=== PATIENT | male | born 1940 | race Hispanic/Latino ===

== ENCOUNTER 2017-08-09 06:59 | Inpatient (IN) | payer MEDICARE, OTHER ==
[2017-08-09] MEDS ORDERED: ASPIRIN PO ONE (07:14)
[2017-08-09 07:37] LABS: Basophils % (Auto) 0.3 % (0.0-1.8); Eosinophils # (Auto) 0.1 K/mm3 (0.0-0.4); Eosinophils % (Auto) 1.8 % (0.0-4.3); Hematocrit 49.2 % (35.5-45.6); Hemoglobin 16.9 gm/dl (11.8-15.2); Lymphocytes # (Auto) 1.7 K/mm3 (1.2-5.4); Mean Corpuscular HGB Conc 34 % (32-34); Mean Corpuscular Hemoglobin 31 pg (28-32); Mean Corpuscular Volume 91 fl (84-94); Monocytes % (Auto) 13.4 % (0.0-7.3); Platelet Count 140 K/mm3 (140-440); Red Blood Count 5.42 M/mm3 (3.65-5.03); Red Cell Distribution Width 13.4 % (13.2-15.2)
[2017-08-09 07:53] LABS: BUN/Creatinine Ratio 18; Blood Urea Nitrogen 21 mg/dL (9-20); Calcium 9.3 mg/dL (8.4-10.2); Hemolysis Index 11
[2017-08-09] MEDS ORDERED: TYLENOL PO ONE (08:03)
--- NOTE | 2017-08-09 08:04 | Emergency Department Report ---
ED General Adult HPI - General Chief complaint: Chest Pain Stated complaint: CHEST PAIN Time Seen by Provider: 08/09/17 07:41 Source: patient, EMS (ems notes not available at time of chart dictation), RN notes reviewed, old records reviewed Mode of arrival: Wheelchair Limitations: No Limitations - History of Present Illness Initial comments: This is a 76-year-old gentleman who is previously known to this provider. Has a past medical history of heart disease, myocardial infarction, hypertension, high cholesterol. He has no history of atrial fibrillation that he is aware of. 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 Patient presents to the ER with sensation of heart racing and palpitations and chest pressure. It is now resolved. Patient denies DVT/pulmonary embolus risk factors. The symptoms did not have exacerbating or relieving factors. He denies cough, vomiting, shortness of breath, urinary symptoms. Patient had a nuclear stress test at this hospital in May which did not demonstrate any signs of new ischemia, and demonstrated prior myocardial infarction. Patient also had thyroid studies in May which were within normal limits. Patient initially presented to this hospital in A. fib with RVR. It spontaneously converted. Case was discussed with cardiology on-call, Dr. Mj Ibrahim and Sam Menard. They recommended admission to the hospital for observation, telemetry monitoring and further medical care at their discretion. The cardiology team will follow in consultation. Case was presented to the Hospital physician, Dr. Garcia, who accepted the patient to the medical service. -: Sudden Location: chest Severity scale (0 -10): 5 Consistency: now resolved Improves with: none Worsens with: none Associated Symptoms: chest pain, other (no hematemesis. No bright red blood per rectum.). denies: confusion, cough, diaphoresis, fever/chills, headaches, loss of appetite, malaise, nausea/vomiting, rash, seizure, shortness of breath, syncope, weakness - Related Data Home Medications Medication Instructions Recorded Confirmed Last Taken Cholecalciferol (Vitamin D3) 3,000 unit PO QDAY 10/28/14 05/23/17 05/23/17 [Vitamin D3] Omeprazole 20 mg PO QDAY 10/28/14 05/23/17 05/23/17 glipiZIDE [Glipizide ER] 2.5 mg PO QDAY 10/28/14 05/23/17 05/23/17 Carvedilol [Coreg] 6.25 mg PO BID 05/23/17 05/23/17 05/23/17 Chlorthalidone 50 mg PO DAILY 05/23/17 05/23/17 05/23/17 Lisinopril [Zestril TAB] 40 mg PO QDAY 05/23/17 05/23/17 05/23/17 Pravastatin [Pravachol] 20 mg PO QHS 05/23/17 05/23/17 05/23/17 hydrALAZINE [Apresoline TAB] 100 mg PO BID 05/23/17 05/23/17 05/23/17 Previous Rx's Medication Instructions Recorded Last Taken Type Meclizine [Antivert] 25 mg PO Q8H PRN #60 tablet 10/29/14 05/23/17 Rx Allergies Allergy/AdvReac Type Severity Reaction Status Date / Time No Known Allergies Allergy Verified 10/28/14 04:14 ED Review of Systems ROS: Stated complaint: CHEST PAIN Other details as noted in HPI Comment: All other systems reviewed and negative Cardiovascular: chest pain, palpitations ED Past Medical Hx - Past Medical History Previous Medical History?: Yes Hx Hypertension: Yes Hx Heart Attack/AMI: Yes (2000) Hx Congestive Heart Failure: No Hx Diabetes: Yes Hx Deep Vein Thrombosis: No Additional medical history: sleep apnea with CPAP - Surgical History Past Surgical History?: Yes Hx Coronary Stent: Yes (X1) Hx Open Heart Surgery: No Hx Pacemaker: No Hx Internal Defibrillator: No Hx Cholecystectomy: No Hx Appendectomy: No Hx Breast Surgery: No Additional Surgical History: tonsilectomy - Social History Smoking Status: Never Smoker Substance Use Type: None - Medications Home Medications: Home Medications Medication Instructions Recorded Confirmed Last Taken Type Cholecalciferol (Vitamin D3) 3,000 unit PO QDAY 10/28/14 05/23/17 05/23/17 History [Vitamin D3] Omeprazole 20 mg PO QDAY 10/28/14 05/23/17 05/23/17 History glipiZIDE [Glipizide ER] 2.5 mg PO QDAY 10/28/14 05/23/17 05/23/17 History Meclizine [Antivert] 25 mg PO Q8H PRN #60 tablet 10/29/14 05/23/17 05/23/17 Rx Carvedilol [Coreg] 6.25 mg PO BID 05/23/17 05/23/17 05/23/17 History Chlorthalidone 50 mg PO DAILY 05/23/17 05/23/17 05/23/17 History Lisinopril [Zestril TAB] 40 mg PO QDAY 05/23/17 05/23/17 05/23/17 History Pravastatin [Pravachol] 20 mg PO QHS 05/23/17 05/23/17 05/23/17 History hydrALAZINE [Apresoline TAB] 100 mg PO BID 05/23/17 05/23/17 05/23/17 History ED Physical Exam - General Limitations: Other (the patient is hard of hearing) General appearance: alert, in no apparent distress - Head Head exam: Present: atraumatic, normocephalic - Eye Eye exam: Present: normal appearance, EOMI - ENT ENT exam: Present: normal exam, normal orophraynx, mucous membranes moist - Neck Neck exam: Present: normal inspection, full ROM. Absent: tenderness, meningismus - Respiratory Respiratory exam: Present: normal lung sounds bilaterally. Absent: respiratory distress - Cardiovascular Cardiovascular Exam: Present: tachycardia, irregular rhythm, normal heart sounds. Absent: systolic murmur, diastolic murmur, rubs, gallop - GI/Abdominal GI/Abdominal exam: Present: soft, normal bowel sounds. Absent: distended, tenderness, guarding, rebound, rigid, pulsatile mass - Rectal Rectal exam: Present: deferred - Extremities Exam Extremities exam: Present: normal inspection, full ROM, normal capillary refill. Absent: pedal edema, joint swelling, calf tenderness - Back Exam Back exam: Present: normal inspection, full ROM. Absent: tenderness, CVA tenderness (R), muscle spasm, paraspinal tenderness, vertebral tenderness - Neurological Exam Neurological exam: Present: alert, oriented X3, CN II-XII intact, normal gait, other (Extraocular movements intact. Tongue midline. No facial droop. Facial sensation intact to light touch in the V1, V2, V3 distribution bilaterally. 5 and 5 strength in 4 extremities.. Sensation is intact to light touch in 4 extremities.). Absent: motor sensory deficit - Psychiatric Psychiatric exam: Present: normal affect, normal mood - Skin Skin exam: Present: warm, dry, intact, normal color. Absent: rash ED Course Vital Signs 08/09/17 08/09/17 08/09/17 07:00 07:02 07:04 Temperature Pulse Rate 120 H 136 H 108 H Respiratory 15 10 L 20 Rate Blood Pressure 143/91 143/91 O2 Sat by Pulse 97 97 97 Oximetry 08/09/17 08/09/17 08/09/17 07:06 07:08 07:10 Temperature 98.6 F Pulse Rate 118 H 118 H 129 H Respiratory 13 18 12 Rate Blood Pressure 143/91 143/91 143/91 O2 Sat by Pulse 97 97 98 Oximetry 08/09/17 08/09/17 08/09/17 07:12 07:15 07:16 Temperature Pulse Rate 119 H 120 H 109 H Respiratory 13 15 17 Rate Blood Pressure 127/97 O2 Sat by Pulse 98 93 96 Oximetry 08/09/17 08/09/17 08/09/17 07:19 07:21 07:23 Temperature Pulse Rate 121 H 124 H 133 H Respiratory 15 18 25 H Rate Blood Pressure 127/97 143/91 143/91 O2 Sat by Pulse 98 97 94 Oximetry 08/09/17 07:53 Temperature 97.8 F Pulse Rate Respiratory Rate Blood Pressure O2 Sat by Pulse Oximetry ED Medical Decision Making - Lab Data Result diagrams: 08/09/17 07:19 08/09/17 07:19 Vital Signs 08/09/17 08/09/17 08/09/17 07:00 07:02 07:04 Temperature Pulse Rate 120 H 136 H 108 H Respiratory 15 10 L 20 Rate Blood Pressure 143/91 143/91 O2 Sat by Pulse 97 97 97 Oximetry 08/09/17 08/09/17 08/09/17 07:06 07:08 07:10 Temperature 98.6 F Pulse Rate 118 H 118 H 129 H Respiratory 13 18 12 Rate Blood Pressure 143/91 143/91 143/91 O2 Sat by Pulse 97 97 98 Oximetry 08/09/17 08/09/17 08/09/17 07:12 07:15 07:16 Temperature Pulse Rate 119 H 120 H 109 H Respiratory 13 15 17 Rate Blood Pressure 127/97 O2 Sat by Pulse 98 93 96 Oximetry 08/09/17 08/09/17 08/09/17 07:19 07:21 07:23 Temperature Pulse Rate 121 H 124 H 133 H Respiratory 15 18 25 H Rate Blood Pressure 127/97 143/91 143/91 O2 Sat by Pulse 98 97 94 Oximetry 08/09/17 07:53 Temperature 97.8 F Pulse Rate Respiratory Rate Blood Pressure O2 Sat by Pulse Oximetry Lab Results 08/09/17 08/09/17 08/09/17 Range/Units 07:19 07:19 07:19 WBC 7.1 (4.5-11.0) K/mm3 RBC 5.42 H (3.65-5.03) M/mm3 Hgb 16.9 H (11.8-15.2) gm/dl Hct 49.2 H (35.5-45.6) % MCV 91 (84-94) fl MCH 31 (28-32) pg MCHC 34 (32-34) % RDW 13.4 (13.2-15.2) % Plt Count 140 (140-440) K/mm3 Lymph % (Auto) 24.0 (13.4-35.0) % [place] % (Auto) 13.4 H (0.0-7.3) % Eos % (Auto) 1.8 (0.0-4.3) % Baso % (Auto) 0.3 (0.0-1.8) % Lymph # 1.7 (1.2-5.4) K/mm3 [place] # 1.0 H (0.0-0.8) K/mm3 Eos # 0.1 (0.0-0.4) K/mm3 Baso # 0.0 (0.0-0.1) K/mm3 Seg Neutrophils % 60.5 (40.0-70.0) % Seg Neutrophils # 4.3 (1.8-7.7) K/mm3 Sodium 140 (137-145) mmol/L Potassium 3.7 (3.6-5.0) mmol/L Chloride 104.0 (98-107) mmol/L Carbon Dioxide 21 L (22-30) mmol/L Anion Gap 19 mmol/L BUN 21 H (9-20) mg/dL Creatinine 1.2 (0.8-1.5) mg/dL Estimated GFR 59 ml/min BUN/Creatinine Ratio 18 % Glucose 138 H (75-100) mg/dL Calcium 9.3 (8.4-10.2) mg/dL Magnesium (1.7-2.3) mg/dL Troponin T < 0.010 (0.00-0.029) ng/mL Urine Color Straw (Yellow) Urine Turbidity Clear (Clear) Urine pH 7.0 (5.0-7.0) Ur Specific [place] 1.003 (1.003-1.030) Urine Protein <15 mg/dl (Negative) mg/dL Urine Glucose (UA) Neg (Negative) mg/dL Urine Ketones Tr (Negative) mg/dL Urine Blood Neg (Negative) Urine Nitrite Neg (Negative) Urine Bilirubin Neg (Negative) Urine Urobilinogen < 2.0 (<2.0) mg/dL Ur Leukocyte Esterase Neg (Negative) Urine WBC (Auto) < 1.0 (0.0-6.0) /HPF Urine RBC (Auto) 2.0 (0.0-6.0) /HPF 08/09/17 Range/Units 07:19 WBC (4.5-11.0) K/mm3 RBC (3.65-5.03) M/mm3 Hgb (11.8-15.2) gm/dl Hct (35.5-45.6) % MCV (84-94) fl MCH (28-32) pg MCHC (32-34) % RDW (13.2-15.2) % Plt Count (140-440) K/mm3 Lymph % (Auto) (13.4-35.0) % [place] % (Auto) (0.0-7.3) % Eos % (Auto) (0.0-4.3) % Baso % (Auto) (0.0-1.8) % Lymph # (1.2-5.4) K/mm3 [place] # (0.0-0.8) K/mm3 Eos # (0.0-0.4) K/mm3 Baso # (0.0-0.1) K/mm3 Seg Neutrophils % (40.0-70.0) % Seg Neutrophils # (1.8-7.7) K/mm3 Sodium (137-145) mmol/L Potassium (3.6-5.0) mmol/L Chloride (98-107) mmol/L Carbon Dioxide (22-30) mmol/L Anion Gap mmol/L BUN (9-20) mg/dL Creatinine (0.8-1.5) mg/dL Estimated GFR ml/min BUN/Creatinine Ratio % Glucose (75-100) mg/dL Calcium (8.4-10.2) mg/dL Magnesium 1.90 (1.7-2.3) mg/dL Troponin T (0.00-0.029) ng/mL Urine Color (Yellow) Urine Turbidity (Clear) Urine pH (5.0-7.0) Ur Specific [place] (1.003-1.030) Urine Protein (Negative) mg/dL Urine Glucose (UA) (Negative) mg/dL Urine Ketones (Negative) mg/dL Urine Blood (Negative) Urine Nitrite (Negative) Urine Bilirubin (Negative) Urine Urobilinogen (<2.0) mg/dL Ur Leukocyte Esterase (Negative) Urine WBC (Auto) (0.0-6.0) /HPF Urine RBC (Auto) (0.0-6.0) /HPF - EKG Data -: EKG Interpreted by Ma - EKG Data 08/09/17 08:55 EKG #1 demonstrates atrial fibrillation, rapid ventricular response, left axis deviation, right bundle branch block, abnormal EKG, not consistent with a STEMI. When compared to prior EKG from May 2017, A. fib is new. Repeat EKG demonstrates resolution of A. fib. - Radiology Data Radiology results: report reviewed, image reviewed X-ray of the chest, interpreted by radiology: No acute disease - Medical Decision Making Differential diagnosis, including not limited to: Structural cardiac disease, arrhythmia, acute coronary syndrome, electrolyte derangement, pneumonia, urinary tract infection Critical care attestation.: If time is entered above; I have spent that time in minutes in the direct care of this critically ill patient, excluding procedure time. ED Disposition Clinical Impression: Paroxysmal atrial fibrillation, Chest pain Disposition: OP ADMIT IP TO THIS HOSP Is pt being admited?: Yes Does the pt Need Aspirin: Yes Condition: Good Instructions: Chest Pain (ED) Referrals: PRIMARY CARE, [Primary Care Provider] - 3-5 Days
[2017-08-09 08:24] LABS: Bilirubin,Urine NEG (Negative); Blood,Urine NEG (Negative); Color,Urine Straw (Yellow); Protein,Urine <15 mg/dL mg/dL (Negative); Urobilinogen,Urine < 2.0 mg/dL (<2.0); WBC,Urine < 1.0 /HPF (0.0-6.0)
--- NOTE | 2017-08-09 08:42 | XRay Report ---
CHEST TWO VIEWS: 08/09/17 06:59:00 CLINICAL: Chest pain. COMPARISON: 11/19/13 FINDINGS: Normal heart and pulmonary vasculature.Aortic ectasia and tortuosity. The lungs are normally expanded and clear.The bones and soft tissues are unremarkable. IMPRESSION: No acute cardiopulmonary process.
[2017-08-09] MEDS ORDERED: BABY ASPIRIN PO ONE (08:57)
[2017-08-09] MEDS ORDERED: MORPHINE IV PRN (09:44)
[2017-08-09] MEDS ORDERED: TYLENOL PO PRN (09:44)
[2017-08-09] MEDS ORDERED: ZOFRAN IV PRN (09:44)
[2017-08-09] MEDS ORDERED: SODIUM CHLORIDE FLUSH SYRINGE 10 ML IV PRN ×2 (09:44→11:05)
--- NOTE | 2017-08-09 11:01 | History and Physical Report ---
History of Present Illness Date of examination: 08/09/17 Date of admission: 08/09/17 09:44 Chief complaint: chest pain History of present illness: patient presents with chest pressure, no radiation, no shortness of breath. had rapid afib at 123 in ED Past History Past Medical History: acute NC, CAD, diabetes, hypertension, other (sleep apnea) Past Surgical History: PTCA, Other (tonsillectomy) Social history: , lives with family, full code. denies: smoking, alcohol abuse Family history: hypertension Medications and Allergies Allergies Allergy/AdvReac Type Severity Reaction Status Date / Time No Known Allergies Allergy Verified 10/28/14 04:14 Home Medications Medication Instructions Recorded Confirmed Last Taken Type Cholecalciferol (Vitamin D3) 3,000 unit PO QDAY 10/28/14 08/09/17 08/08/17 History [Vitamin D3] Omeprazole 20 mg PO QDAY 10/28/14 08/09/17 05/23/17 History glipiZIDE [Glipizide ER] 2.5 mg PO QDAY 10/28/14 08/09/17 05/23/17 History Meclizine [Antivert] 25 mg PO Q8H PRN #60 tablet 10/29/14 08/09/17 05/23/17 Rx Carvedilol [Coreg] 6.25 mg PO BID 05/23/17 08/09/17 05/23/17 History Chlorthalidone 50 mg PO DAILY 05/23/17 08/09/17 08/08/17 History Lisinopril [Zestril TAB] 40 mg PO QDAY 05/23/17 08/09/17 1 Day Ago History ~08/08/17 Pravastatin [Pravachol] 20 mg PO QHS 05/23/17 08/09/17 08/08/17 History hydrALAZINE [Apresoline TAB] 100 mg PO BID 05/23/17 08/09/17 08/08/17 History hydrALAZINE 50 mg DAILY 08/09/17 08/09/17 1 Day Ago History ~08/08/17 Active Meds: Active Medications Acetaminophen (Tylenol) 650 mg PO Q4H PRN PRN Reason: Pain MILD(1-3)/Fever >100.5/JEREZ Carvedilol (Coreg) 6.25 mg PO BID JEFF Heparin Sodium (Porcine) (Heparin) 5,000 unit SUB-Q Q8HR [facility] Hydralazine HCl (Apresoline) 100 mg PO BID [facility] Morphine Sulfate (Morphine) 2 mg IV Q4H PRN PRN Reason: Pain, Moderate (4-6) Ondansetron HCl (Zofran) 4 mg IV Q8H PRN PRN Reason: Nausea And Vomiting Sodium Chloride (Sodium Chloride Flush Syringe 10 Ml) 10 ml IV BID [facility] Sodium Chloride (Sodium Chloride Flush Syringe 10 Ml) 10 ml IV PRN PRN PRN Reason: LINE FLUSH Exam - Physical Exam Narrative exam: General:Not in acute distress, lying in bed,obese HEENT:Normocephalic, atraumatic Neck:supple,no JVD Lungs: Clear to auscultation, no rales, no wheeze Heart:S1 and S2 regular, no murmurs, rubs or gallop Abd: soft, non tender,non distended, normal bowel sounds Ext:no edema, no clubbing or cyanosis Neuro:Awake,alert,oriented x 3, moves all extremities, Psych:normal mood - Constitutional Vitals: Temp Pulse Resp BP Pulse Ox 97.8 F 133 H 25 H 143/91 94 08/09/17 07:53 08/09/17 07:23 08/09/17 07:23 08/09/17 07:23 08/09/17 07:23 Results - Labs CBC & Chem 7: 08/09/17 11:51 08/09/17 11:51 Labs: Abnormal lab results 08/09/17 08/09/17 Range/Units 07:19 07:19 RBC 5.42 H (3.65-5.03) M/mm3 Hgb 16.9 H (11.8-15.2) gm/dl Hct 49.2 H (35.5-45.6) % [place] % (Auto) 13.4 H (0.0-7.3) % [place] # 1.0 H (0.0-0.8) K/mm3 Carbon Dioxide 21 L (22-30) mmol/L BUN 21 H (9-20) mg/dL Glucose 138 H (75-100) mg/dL Assessment and Plan Chest pain. Initial Troponin normal. Admit to [facility], serial Troponins. 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 Cardiology to decide CAD HTN Diabetes mellitus type 2. Fingerstick q ac and hs DVT prophylaxis
[2017-08-09] MEDS ORDERED: NITROSTAT SL PRN (11:05)
[2017-08-09 12:06] LABS: Basophils % (Auto) 0.2 % (0.0-1.8); Eosinophils # (Auto) 0.1 K/mm3 (0.0-0.4); Hematocrit 49.3 % (35.5-45.6); Hemoglobin 16.9 gm/dl (11.8-15.2); Lymphocytes # (Auto) 1.5 K/mm3 (1.2-5.4); Lymphocytes % (Auto) 19.6 % (13.4-35.0); Mean Corpuscular HGB Conc 34 % (32-34); Mean Corpuscular Hemoglobin 31 pg (28-32); Mean Corpuscular Volume 91 fl (84-94); Monocytes # (Auto) 0.8 K/mm3 (0.0-0.8); Monocytes % (Auto) 10.7 % (0.0-7.3); Platelet Count 143 K/mm3 (140-440); Red Blood Count 5.43 M/mm3 (3.65-5.03)
[2017-08-09 12:28] LABS: Calcium 9.2 mg/dL (8.4-10.2)
[2017-08-09] MEDS: COREG PO SCH ×2 (13:16→22:07)
[2017-08-09] MEDS: APRESOLINE PO SCH ×2 (13:16→22:07)
[2017-08-09] MEDS: NITRO-BID 2% TP SCH (13:17)
--- NOTE | 2017-08-09 13:44 | Consultation ---
History of Present Illness Consult date: 08/09/17 Requesting physician: SARINA BAILEY Consult reason: atrial fibrillation, chest pain History of present illness: The pt is a 76 YO male with a past medical history significant for CAD s/p AMI and PCI, HTN, HLP, DM, RBBB with LAFB, bradycardia, vertigo. He is followed in our office by Dr. Ibrahim. He presented to the ED with complaints of heart racing and palpitations. He was found to be in AFib with RVR which spontaneously converted to NSR in ED. He has no known history of atrial fibrillation or atrial flutter, however, he does report that he has been experiencing intermittent palpitations (particularly at night) for the past several months. He denies any current chest pain, SOB, palpitations, n/v, diaphoresis, dizziness or syncope. Of note, he has a history of long-standing high blood pressure which has been difficult to manage as a consequence of side effects from multiple antihypertensive medications. He cannot tolerate lopressor. Lexiscan MPI stress test done 05/2017 was negative for active ischemia, EF 53%. Echo done 05/2017 showed EF 50-55%, mild LVH, impaired relaxation. Past History Past Medical History: acute NM, CAD, diabetes, hypertension, other (sleep apnea) Past Surgical History: PTCA, Other (tonsillectomy) Social history: , lives with family, full code. denies: smoking, alcohol abuse Family history: hypertension Medications and Allergies Allergies Allergy/AdvReac Type Severity Reaction Status Date / Time No Known Allergies Allergy Verified 10/28/14 04:14 Home Medications Medication Instructions Recorded Confirmed Last Taken Type Cholecalciferol (Vitamin D3) 3,000 unit PO QDAY 10/28/14 08/09/17 08/08/17 History [Vitamin D3] Omeprazole 20 mg PO QDAY 10/28/14 08/09/17 05/23/17 History glipiZIDE [Glipizide ER] 2.5 mg PO QDAY 10/28/14 08/09/17 05/23/17 History Meclizine [Antivert] 25 mg PO Q8H PRN #60 tablet 10/29/14 08/09/17 05/23/17 Rx Carvedilol [Coreg] 6.25 mg PO BID 05/23/17 08/09/17 05/23/17 History Chlorthalidone 50 mg PO DAILY 05/23/17 08/09/17 08/08/17 History Lisinopril [Zestril TAB] 40 mg PO QDAY 05/23/17 08/09/17 1 Day Ago History ~08/08/17 Pravastatin [Pravachol] 40 mg PO QHS 05/23/17 08/09/17 08/08/17 History hydrALAZINE [Apresoline TAB] 100 mg PO BID 05/23/17 08/09/17 08/08/17 History hydrALAZINE 50 mg DAILY 08/09/17 08/09/17 1 Day Ago History ~08/08/17 Active Meds: Active Medications Acetaminophen (Tylenol) 650 mg PO Q4H PRN PRN Reason: Pain MILD(1-3)/Fever >100.5/JEREZ Aspirin (Ecotrin) 325 mg PO QDAY [facility] Carvedilol (Coreg) 6.25 mg PO BID [facility] Last Admin: 08/09/17 13:16 Dose: 6.25 mg Heparin Sodium (Porcine) (Heparin) 5,000 unit SUB-Q Q8HR [facility] Hydralazine HCl (Apresoline) 100 mg PO BID [facility] Last Admin: 08/09/17 13:16 Dose: 100 mg Lisinopril (Zestril) 40 mg PO QDAY [facility] Morphine Sulfate (Morphine) 2 mg IV Q4H PRN PRN Reason: Pain, Moderate (4-6) Nitroglycerin (Nitrostat) 0.4 mg SL Q5M PRN PRN Reason: Chest Pain Nitroglycerin (Nitro-Bid 2%) 0.5 inch TP TIDNTG [facility]; Protocol Last Admin: 08/09/17 13:17 Dose: Not Given Ondansetron HCl (Zofran) 4 mg IV Q8H PRN PRN Reason: Nausea And Vomiting Pantoprazole Sodium (Protonix) 20 mg PO QDAY [facility] Pravastatin Sodium (Pravachol) 40 mg PO QHS [facility] Sodium Chloride (Sodium Chloride Flush Syringe 10 Ml) 10 ml IV BID [facility] Sodium Chloride (Sodium Chloride Flush Syringe 10 Ml) 10 ml IV PRN PRN PRN Reason: LINE FLUSH Sodium Chloride (Sodium Chloride Flush Syringe 10 Ml) 10 ml IV PRN PRN PRN Reason: LINE FLUSH Review of Systems Constitutional: no weight loss, no weight gain, no fever, no chills, no sweats Ears, nose, mouth and throat: no ear pain, no nose pain, no sinus pressure, no sinus pain Cardiovascular: palpitations, rapid/irregular heart beat, no orthopnea, no edema , no syncope, no lightheadedness, no shortness of breath Respiratory: no cough, no shortness of breath, no dyspnea on exertion, no congestion, no wheezing, no pain on inspiration Gastrointestinal: no abdominal pain, no nausea, no vomiting, no diarrhea, no constipation, no change in bowel habits Genitourinary Male: no dysuria, no hematuria, no flank pain, no discharge, no urinary frequency, no urinary hesitancy Musculoskeletal: no neck stiffness, no neck pain, no shooting arm pain, no arm numbness/tingling, no low back pain, no shooting leg pain, no leg numbness/ tingling Integumentary: no rash, no pruritis, no redness, no sores, no wounds Neurological: no head injury, no paralysis, no weakness, no parathesias, no numbness, no tingling, no seizures, no syncope Psychiatric: no anxiety Endocrine: no cold intolerance, no heat intolerance Hematologic/Lymphatic: no easy bruising, no easy bleeding, no lymphadenopathy Allergic/Immunologic: no urticaria, no wheezing, no persistent infections Physical Examination Vital Signs Pulse Resp Pulse Ox 120 H 15 97 08/09/17 07:00 08/09/17 07:00 08/09/17 07:00 General appearance: no acute distress HEENT: Positive: PERRL, Normocephaly, Mucus Membranes Moist Neck: Positive: neck supple, trachea midline Cardiac: Positive: Reg Rate and Rhythm, S1/S2 Lungs: Positive: clear to auscultation Neuro: Positive: Grossly Intact, Cranial Nerve 2-12 Intact Abdomen: Positive: Soft. Negative: Tender Skin: Positive: Clear. Negative: Rash, Wound Musculoskeletal: No Fluid Collection, No Pain, Normal Range of Motion Extremities: Absent: edema Results 08/09/17 11:51 08/09/17 11:51 CBC 08/09/17 08/09/17 Range/Units 07:19 11:51 WBC 7.1 7.6 (4.5-11.0) K/mm3 RBC 5.42 H 5.43 H (3.65-5.03) M/mm3 Hgb 16.9 H 16.9 H (11.8-15.2) gm/dl Hct 49.2 H 49.3 H (35.5-45.6) % Plt Count 140 143 (140-440) K/mm3 Lymph # 1.7 1.5 (1.2-5.4) K/mm3 [place] # 1.0 H 0.8 (0.0-0.8) K/mm3 Eos # 0.1 0.1 (0.0-0.4) K/mm3 Baso # 0.0 0.0 (0.0-0.1) K/mm3 Comprehensive Metabolic Panel 08/09/17 08/09/17 Range/Units 07:19 11:51 Sodium 140 142 (137-145) mmol/L Potassium 3.7 3.9 (3.6-5.0) mmol/L Chloride 104.0 104.8 (98-107) mmol/L Carbon Dioxide 21 L 24 (22-30) mmol/L BUN 21 H 20 (9-20) mg/dL Creatinine 1.2 1.3 (0.8-1.5) mg/dL Glucose 138 H 131 H (75-100) mg/dL Calcium 9.3 9.2 (8.4-10.2) mg/dL - Imaging and Cardiology Echo: report reviewed (05/2017 showed EF 50-55%, mild LVH, impaired relaxation. ) EKG: report reviewed, image reviewed EKG interpretations - Telemetry EKG Rhythm: Sinus Rhythm - EKG Supraventricular dysrhythmia: atrial fibrillation AV and intraventricular conduction: right bundle branch block Myocardial infarction: inferior NM (old age inde Assessment and Plan Assessment: Atrial fibrillation with RVR --> SR; suspect paroxysmal for the past several months per pt report; recent thyroid profile WNL CAD s/p PCI HTN HLP DM H/o vertigo Plan: Cont to monitor on telemetry. 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 Indications, potential risks and benefits of OAC reviewed with pt and he is agreeable. Initiate Eliquis 5mg BID. D/c ASA. Agree with all other present cardiac management. Titrate coreg as necessary for HR optimization. No indication for repeat echo or ischemic evaluation at this time. Assessment and plan reviewed with pt and pt's daughter at bedside. The patient has been seen in conjunction with Dr. Ibrahim who agrees with the assessment and plan of care.
[2017-08-09] MEDS ORDERED: HEPARIN SUB-Q SCH (14:00)
[2017-08-09] MEDS ORDERED: PRAVACHOL PO SCH (22:00)
[2017-08-09] MEDS: SODIUM CHLORIDE FLUSH SYRINGE 10 ML IV SCH (22:06)
[2017-08-09] MEDS: ELIQUIS PO SCH (22:06)
[2017-08-10 05:55] VITALS: BP 139/75
[2017-08-10] MEDS: NITRO-BID 2% TP SCH ×2 (06:03→12:06)
[2017-08-10 07:17] LABS: Basophils % (Auto) 0.4 % (0.0-1.8); Eosinophils # (Auto) 0.1 K/mm3 (0.0-0.4); Eosinophils % (Auto) 1.4 % (0.0-4.3); Hematocrit 44.1 % (35.5-45.6); Hemoglobin 15.4 gm/dl (11.8-15.2); Lymphocytes # (Auto) 1.5 K/mm3 (1.2-5.4); Lymphocytes % (Auto) 20.4 % (13.4-35.0); Mean Corpuscular HGB Conc 35 % (32-34); Mean Corpuscular Hemoglobin 32 pg (28-32); Mean Corpuscular Volume 91 fl (84-94); Monocytes # (Auto) 0.9 K/mm3 (0.0-0.8); Platelet Count 131 K/mm3 (140-440); Red Blood Count 4.83 M/mm3 (3.65-5.03); Red Cell Distribution Width 13.2 % (13.2-15.2)
[2017-08-10 08:33] LABS: Calcium 9.3 mg/dL (8.4-10.2)
[2017-08-10] MEDS: COREG PO SCH (09:20)
[2017-08-10] MEDS: ELIQUIS PO SCH (09:20)
[2017-08-10] MEDS ORDERED: ZESTRIL PO SCH (10:00)
[2017-08-10] MEDS ORDERED: ECOTRIN PO SCH (10:00)
[2017-08-10] MEDS ORDERED: PROTONIX PO SCH (10:00)
[2017-08-10] MEDS ORDERED: NON-FORMULARY (Omeprazole [Omeprazole] 20 MG) PO SCH (10:00)
[2017-08-10] MEDS: SODIUM CHLORIDE FLUSH SYRINGE 10 ML IV SCH (10:00)
[2017-08-10] MEDS: APRESOLINE PO SCH (10:20)
--- NOTE | 2017-08-10 14:23 | Progress Note ---
Assessment and Plan Assessment: Atrial fibrillation with RVR --> SR; suspect paroxysmal for the past several months per pt report; recent thyroid profile WNL; Eliquis initiated CAD s/p PCI HTN HLP DM H/o vertigo Plan: Currently stable cardiac status. Pt may discharge home from cardiology standpoint. Follow up in our [place] office with Dr. Ibrahim on 08/24/2017 @ 9:00AM. Assessment and plan reviewed with pt at bedside. The patient has been seen in conjunction with Dr. Ibrahim who agrees with the assessment and plan of care. Subjective Date of service: 08/10/17 Principal diagnosis: AFib with RVR Interval history: Pt resting comfortably in bed, no current cardiac complaints. Tele reviewed - pt remained in SR overnight. Objective Last Vital Signs Temp 97.9 F 08/10/17 03:39 Pulse 73 08/10/17 09:21 Resp 18 08/10/17 03:39 BP 139/75 08/10/17 03:39 Pulse Ox 95 08/10/17 03:39 - Physical Examination General: No Apparent Distress HEENT: Positive: PERRL, Normocephaly, Mucus Membranes Moist Neck: Positive: neck supple, trachea midline Cardiac: Positive: Reg Rate and Rhythm, S1/S2 Lungs: Positive: clear to auscultation Neuro: Positive: Grossly Intact, Cranial Nerve 2-12 Intact Abdomen: Positive: Soft. Negative: Tender Skin: Positive: Clear. Negative: Rash, Wound Musculoskeletal: No Fluid Collection, No Pain, Normal Range of Motion Extremities: Absent: edema - Labs and Meds CBC 08/10/17 Range/Units 06:58 WBC 7.6 (4.5-11.0) K/mm3 RBC 4.83 (3.65-5.03) M/mm3 Hgb 15.4 H (11.8-15.2) gm/dl Hct 44.1 (35.5-45.6) % Plt Count 131 L (140-440) K/mm3 Lymph # 1.5 (1.2-5.4) K/mm3 [place] # 0.9 H (0.0-0.8) K/mm3 Eos # 0.1 (0.0-0.4) K/mm3 Baso # 0.0 (0.0-0.1) K/mm3 Comprehensive Metabolic Panel 05/09/18 Range/Units 06:58 Sodium 143 (137-145) mmol/L Potassium 4.1 (3.6-5.0) mmol/L Chloride 104.7 (98-107) mmol/L Carbon Dioxide 27 (22-30) mmol/L BUN 22 H (9-20) mg/dL Creatinine 1.3 (0.8-1.5) mg/dL Glucose 151 H (75-100) mg/dL Calcium 9.3 (8.4-10.2) mg/dL - Imaging and Cardiology EKG: report reviewed, image reviewed Echo: report reviewed (05/2017 showed EF 50-55%, mild LVH, impaired relaxation. ) - Telemetry EKG Rhythm: Sinus Rhythm AV and intraventricular conduction: right bundle branch block Myocardial infarction: inferior FL (old age inde
--- NOTE | 2017-08-10 14:59 | Discharge Summary ---
Providers - Providers Date of Admission: 08/09/17 09:44 Date of discharge: 08/10/17 Attending physician: SARINA BAILEY 08/09/17 Consult to Cardiac Rehabilitation [CONS] Routine Reason For Exam: Phase I 08/09/17 09:47 Consult to Physician [CONS] Routine Comment: Consulting Provider: RASHAD DAVALOS Physician Instructions: Reason For Exam: Chest pain, afib Primary care physician: [employer]ION CLERK Hospitalization Condition: Good Disposition: DC-01 TO HOME OR SELFCARE Core Measure Documentation - Palliative Care Palliative Care/ Comfort Measures: Not Applicable - Core Measures Any of the following diagnoses?: none Exam - Constitutional Vitals: Temp Pulse Resp BP Pulse Ox 97.9 F 73 18 139/75 95 08/10/17 03:39 08/10/17 09:21 08/10/17 03:39 08/10/17 03:39 08/10/17 03:39 Plan Activity: advance as tolerated Diet: low fat, low cholesterol, low salt Additional Instructions: 1.Follow up with PCP in 1 week. 2.Follow up with Dr. Davalos on 08/24/17 Follow up with: PRIMARY CARE, [Primary Care Provider] - 3-5 Days Prescriptions: Apixaban [Eliquis] 5 mg PO Q12HR #60 tablet
== END 2017-08-10 17:05 | disposition home or self-care (01) | DRG 310 ==
LOC: ED 06:59 → 4A 09:44
PROVIDERS: ADMIT Internal Medicine; ATTEND Internal Medicine
DX: I48.0 Paroxysmal atrial fibrillation (principal); I25.10 Atherosclerotic heart disease of native coronary artery without angina pectoris; I25.2 Old myocardial infarction; I11.9 Hypertensive heart disease without heart failure; R07.9 Chest pain, unspecified; E11.9 Type 2 diabetes mellitus without complications; E78.5 Hyperlipidemia, unspecified; Z79.84 Long term (current) use of oral hypoglycemic drugs; Z95.5 Presence of coronary angioplasty implant and graft
CPT/HCPCS: 36415; 71046; 80048; 81001; 83735; 84484; 85025; 93005; 93010; A9270-GY

== ENCOUNTER 2017-10-20 04:25 | Emergency (ER) | payer MEDICARE, OTHER ==
[2017-10-20 04:55] VITALS: BP 157/87
--- NOTE | 2017-10-20 05:29 | XRay Report ---
FINAL REPORT EXAM: XR CHEST ROUTINE 2V HISTORY: chest pain TECHNIQUE: PA and lateral views of the chest were submitted. FINDINGS: The heart size and pulmonary vasculature appear normal. The thoracic aorta is moderately tortuous. The lungs are clear. Pleural fluid is not seen. The skeletal structures do not show any acute changes. IMPRESSION: No active chest disease.
[2017-10-20 06:13] LABS: Basophils % (Auto) 0.4 % (0.0-1.8); Eosinophils # (Auto) 0.1 K/mm3 (0.0-0.4); Eosinophils % (Auto) 1.1 % (0.0-4.3); Hematocrit 47.9 % (35.5-45.6); Hemoglobin 16.3 gm/dl (11.8-15.2); Lymphocytes # (Auto) 1.8 K/mm3 (1.2-5.4); Lymphocytes % (Auto) 21.5 % (13.4-35.0); Mean Corpuscular HGB Conc 34 % (32-34); Mean Corpuscular Hemoglobin 31 pg (28-32); Mean Corpuscular Volume 92 fl (84-94); Monocytes % (Auto) 11.6 % (0.0-7.3); Platelet Count 127 K/mm3 (140-440); Red Blood Count 5.21 M/mm3 (3.65-5.03); Red Cell Distribution Width 13.3 % (13.2-15.2)
[2017-10-20 06:19] LABS: BUN/Creatinine Ratio 17; Blood Urea Nitrogen 22 mg/dL (9-20); Calcium 9.4 mg/dL (8.4-10.2); Hemolysis Index 7
--- NOTE | 2017-10-20 10:30 | Emergency Department Report ---
ED Chest Pain HPI - General Chief Complaint: Chest Pain Stated Complaint: CHEST PAIN Time Seen by Provider: 10/20/17 10:05 Source: EMS Mode of arrival: Stretcher Limitations: No Limitations - History of Present Illness Initial Comments: 76 YO male with a past medical history significant for CAD s/p AMI and PCI, HTN , HLP, DM, RBBB with LAFB, bradycardia, vertigo,. came in complaining of Atrial fibrillation,chest pain. pt states that he has had episodes on a fib, pt is on eliquis as a blood thinner. Pt states his chest pain is resolved now, Pt denies n/v/cp/sob Complaint: chest pain Onset/Timin -: Sudden, days(s) Onset: during rest Pain Location: left chest Pain Radiation: none Severity: mild Severity scale (0 -10): 3 Quality: aching Consistency: intermittent, now resolved Improves With: nothing Worsens With: nothing re: denies: nausea, vomting, diaphoresis, dyspnea, sense of impending doom Other Symptoms: denies: cough, fever, syncope, rash, acid taste in mouth, palpitations, burping - Related Data Home Medications Medication Instructions Recorded Confirmed Last Taken Cholecalciferol (Vitamin D3) 3,000 unit PO QDAY 10/28/14 08/09/17 08/08/17 [Vitamin D3] Omeprazole 20 mg PO QDAY 10/28/14 08/09/17 05/23/17 glipiZIDE [Glipizide ER] 2.5 mg PO QDAY 10/28/14 08/09/17 05/23/17 Carvedilol [Coreg] 6.25 mg PO BID 05/23/17 08/09/17 05/23/17 Chlorthalidone 50 mg PO DAILY 05/23/17 08/09/17 08/08/17 Lisinopril [Zestril TAB] 40 mg PO QDAY 05/23/17 08/09/17 1 Day Ago ~08/08/17 Pravastatin [Pravachol] 20 mg PO QHS 05/23/17 08/09/17 08/08/17 hydrALAZINE [Apresoline TAB] 100 mg PO BID 05/23/17 08/09/17 08/08/17 Previous Rx's Medication Instructions Recorded Last Taken Type Meclizine [Antivert] 25 mg PO Q8H PRN #60 tablet 10/29/14 05/23/17 Rx Apixaban [Eliquis] 5 mg PO Q12HR #60 tablet 08/10/17 Unknown Rx Allergies Allergy/AdvReac Type Severity Reaction Status Date / Time No Known Allergies Allergy Verified 10/28/14 04:14 Heart Score - HEART Score History: Slightly suspicious EKG: Non-specific Age: > 65 Risk factors: 1-2 risk factors Troponin: < normal limit HEART Score: 4 - Critical Actions Critical Actions: 4-6 pts:12-16.6% risk of adverse cardiac event. Should be admitted ED Review of Systems ROS: Stated complaint: CHEST PAIN Other details as noted in HPI Constitutional: denies: chills, fever Eyes: denies: eye pain, eye discharge, vision change ENT: denies: ear pain, throat pain Respiratory: denies: cough, shortness of breath, wheezing Cardiovascular: denies: chest pain, palpitations Endocrine: no symptoms reported Gastrointestinal: denies: abdominal pain, nausea, diarrhea Genitourinary: denies: urgency, dysuria Musculoskeletal: denies: back pain, joint swelling, arthralgia Skin: denies: rash, lesions Neurological: denies: headache, weakness, paresthesias Psychiatric: denies: anxiety, depression Hematological/Lymphatic: denies: easy bleeding, easy bruising ED Past Medical Hx - Past Medical History Previous Medical History?: Yes Hx Hypertension: Yes Hx Heart Attack/AMI: Yes (2000) Hx Congestive Heart Failure: No Hx Diabetes: Yes Hx Deep Vein Thrombosis: No Additional medical history: sleep apnea with CPAP - Surgical History Hx Coronary Stent: Yes (X1) Hx Open Heart Surgery: No Hx Pacemaker: No Hx Internal Defibrillator: No Hx Cholecystectomy: No Hx Appendectomy: No Hx Breast Surgery: No Additional Surgical History: tonsilectomy - Social History Smoking Status: Never Smoker Substance Use Type: None - Medications Home Medications: Home Medications Medication Instructions Recorded Confirmed Last Taken Type Cholecalciferol (Vitamin D3) 3,000 unit PO QDAY 10/28/14 08/09/17 08/08/17 History [Vitamin D3] Omeprazole 20 mg PO QDAY 10/28/14 08/09/17 05/23/17 History glipiZIDE [Glipizide ER] 2.5 mg PO QDAY 10/28/14 08/09/17 05/23/17 History Meclizine [Antivert] 25 mg PO Q8H PRN #60 tablet 10/29/14 08/09/17 05/23/17 Rx Carvedilol [Coreg] 6.25 mg PO BID 05/23/17 08/09/17 05/23/17 History Chlorthalidone 50 mg PO DAILY 05/23/17 08/09/17 08/08/17 History Lisinopril [Zestril TAB] 40 mg PO QDAY 05/23/17 08/09/17 1 Day Ago History ~08/08/17 Pravastatin [Pravachol] 20 mg PO QHS 05/23/17 08/09/17 08/08/17 History hydrALAZINE [Apresoline TAB] 100 mg PO BID 05/23/17 08/09/17 08/08/17 History Apixaban [Eliquis] 5 mg PO Q12HR #60 tablet 08/10/17 Unknown Rx ED Physical Exam - General Limitations: No Limitations General appearance: alert, in no apparent distress - Head Head exam: Present: atraumatic, normocephalic - Eye Eye exam: Present: normal appearance - ENT ENT exam: Present: mucous membranes moist - Neck Neck exam: Present: normal inspection - Respiratory Respiratory exam: Present: normal lung sounds bilaterally. Absent: respiratory distress - Cardiovascular Cardiovascular Exam: Present: regular rate, normal rhythm. Absent: systolic murmur, diastolic murmur, rubs, gallop - GI/Abdominal GI/Abdominal exam: Present: soft, normal bowel sounds - Rectal Rectal exam: Present: deferred - Extremities Exam Extremities exam: Present: normal inspection - Back Exam Back exam: Present: normal inspection - Neurological Exam Neurological exam: Present: alert, oriented X3 - Psychiatric Psychiatric exam: Present: normal affect, normal mood - Skin Skin exam: Present: warm, dry, intact, normal color. Absent: rash ED Course Vital Signs 10/20/17 04:43 Temperature 98.7 F Pulse Rate 103 H Blood Pressure 157/87 O2 Sat by Pulse 99 Oximetry 76yo male with PMhx of HTN, DM came in complaining of chest pain and atrial fibrilation, Pts bloodwork is normal, trop x 2 is negative, i had a long conversation with the pt and discussed admission, he wants to leave. Pt will sign out against medical advice, all risks including explained. Pt at the time of disposition is AAOx3, and will sign out against medical advice, all risks including explained FRITZ score - Fritz Score Age > 65: (0) No Aspirin use within the Past 7 Days: (0) No 3 or more CAD Risk Factors: (0) No 2 or more Angina events in past 24 hrs: (0) No Known CAD with more than 50% Stenosis: (0) No Elevated Cardiac Markers: (0) No ST Deviation Greater than 0.5mm: (0) No FRITZ Score: 0 ED Medical Decision Making - Lab Data Result diagrams: 10/20/17 05:41 10/20/17 05:41 Critical care attestation.: If time is entered above; I have spent that time in minutes in the direct care of this critically ill patient, excluding procedure time. ED Disposition Clinical Impression: Chest pain, Left against medical advice Disposition: LEFT AGAINST MED ADVICE Is pt being admited?: No Condition: Stable Instructions: Chest Pain (ED) Referrals: PREETHI GARCIA MD [Primary Care Provider] - 3-5 Days
[2017-10-20] MEDS ORDERED: BABY ASPIRIN PO ONE (10:32)
== END 2017-10-20 10:52 | disposition left against medical advice (07) ==
LOC: ED 04:25
DX: R07.9 Chest pain, unspecified (principal); I10 Essential (primary) hypertension; I25.2 Old myocardial infarction; E11.9 Type 2 diabetes mellitus without complications; Z90.49 Acquired absence of other specified parts of digestive tract; Z95.1 Presence of aortocoronary bypass graft
CPT/HCPCS: 36415; 71046; 80048; 84484; 85025; 93005; 93010

== ENCOUNTER 2017-10-23 10:56 | Inpatient (IN) | payer MEDICARE, OTHER ==
[2017-10-23] MEDS ORDERED: ASPIRIN PO ONE (11:14)
[2017-10-23 12:17] LABS: Basophils % (Auto) 0.4 % (0.0-1.8); Eosinophils # (Auto) 0.1 K/mm3 (0.0-0.4); Eosinophils % (Auto) 1.1 % (0.0-4.3); Hematocrit 46.3 % (35.5-45.6); Hemoglobin 16.1 gm/dl (11.8-15.2); Lymphocytes # (Auto) 1.6 K/mm3 (1.2-5.4); Lymphocytes % (Auto) 20.7 % (13.4-35.0); Mean Corpuscular HGB Conc 35 % (32-34); Mean Corpuscular Hemoglobin 32 pg (28-32); Mean Corpuscular Volume 91 fl (84-94); Monocytes # (Auto) 0.9 K/mm3 (0.0-0.8); Monocytes % (Auto) 11.5 % (0.0-7.3); Platelet Count 132 K/mm3 (140-440); Red Blood Count 5.06 M/mm3 (3.65-5.03); Red Cell Distribution Width 13.2 % (13.2-15.2)
[2017-10-23 12:29] LABS: Chol/HDL Ratio 3.75 %
--- NOTE | 2017-10-23 13:14 | XRay Report ---
FINAL REPORT EXAM: XR CHEST 1V AP HISTORY: hypertension COMPARISON: Chest radiograph performed on 10/20/2017 TECHNIQUE: Single frontal view of the chest FINDINGS: The cardiomediastinal silhouette is normal in appearance. The lungs are clear without focal consolidation. There is no pleural effusion or pneumothorax. There is no acute soft tissue or osseous abnormality. IMPRESSION: No acute cardiopulmonary disease.
--- NOTE | 2017-10-23 13:25 | Emergency Department Report ---
ED Chest Pain HPI - General Chief Complaint: Chest Pain Stated Complaint: AFIB/CHEST PAIN Time Seen by Provider: 10/23/17 12:20 Source: patient Mode of arrival: Ambulatory Limitations: No Limitations - History of Present Illness Initial Comments: 77-year-old male felt as if he went back into atrial fibrillation again at about midnight. He called his scow captain Sam Monreal. He was told to come to the emergency department for evaluation. He does have intermittent chest pressure. Additionally last night, he was a bit sweaty and short of breath. He did not have any prolonged chest pain. At the time of my encounter, he did not complain of chest pain. He was told by his scow captain that a stress test would be necessary already. He has been seen by Dr. Sam Monreal in the emergency department. He is not complaining of shortness of breath. He denies nausea and vomiting. He states that he took his regular medicine to include Eliquis this morning. MD Complaint: chest pain -: Gradual Onset: during rest Pain Location: substernal Pain Radiation: none Severity: mild, moderate Quality: pressure Consistency: now resolved Improves With: nothing Worsens With: nothing Context: other (paroxysmal atrial fibrillation) re: dyspnea (some dyspnea last night). denies: nausea, vomting, diaphoresis ( some sweating last night) Other Symptoms: denies: cough, fever, syncope, rash, acid taste in mouth, leg swelling Treatments Prior to Arrival: other Aspirin use within the Past 7 Days: (0) No - Related Data On Oral Contraceptives: No Home Medications Medication Instructions Recorded Confirmed Last Taken Cholecalciferol (Vitamin D3) 3,000 unit PO QDAY 10/28/14 08/09/17 08/08/17 [Vitamin D3] Omeprazole 20 mg PO QDAY 10/28/14 08/09/17 05/23/17 glipiZIDE [Glipizide ER] 2.5 mg PO QDAY 10/28/14 08/09/17 05/23/17 Carvedilol [Coreg] 6.25 mg PO BID 05/23/17 08/09/17 05/23/17 Chlorthalidone 50 mg PO DAILY 05/23/17 08/09/17 08/08/17 Lisinopril [Zestril TAB] 40 mg PO QDAY 05/23/17 08/09/17 1 Day Ago ~08/08/17 Pravastatin [Pravachol] 20 mg PO QHS 05/23/17 08/09/17 08/08/17 hydrALAZINE [Apresoline TAB] 100 mg PO BID 05/23/17 08/09/17 08/08/17 Previous Rx's Medication Instructions Recorded Last Taken Type Meclizine [Antivert] 25 mg PO Q8H PRN #60 tablet 10/29/14 05/23/17 Rx Apixaban [Eliquis] 5 mg PO Q12HR #60 tablet 08/10/17 Unknown Rx Allergies Allergy/AdvReac Type Severity Reaction Status Date / Time No Known Allergies Allergy Verified 10/28/14 04:14 Heart Score - HEART Score History: Moderately suspicious EKG: Non-specific Age: > 65 Risk factors: > 3 risk factors or hx of atherosclerotic disease Troponin: 1-3x normal limit HEART Score: 7 - Critical Actions Critical Actions: 4-6 pts:12-16.6% risk of adverse cardiac event. Should be admitted ED Review of Systems ROS: Stated complaint: AFIB/CHEST PAIN Other details as noted in HPI Constitutional: other (sweating). denies: chills, fever Eyes: denies: eye pain, eye discharge, vision change ENT: denies: ear pain, throat pain Respiratory: shortness of breath. denies: cough, wheezing Cardiovascular: chest pain. denies: palpitations Endocrine: no symptoms reported Gastrointestinal: denies: abdominal pain, nausea, diarrhea Genitourinary: denies: urgency, dysuria Musculoskeletal: denies: back pain, joint swelling, arthralgia Skin: denies: rash, lesions Neurological: denies: headache, weakness, paresthesias Psychiatric: denies: anxiety, depression Hematological/Lymphatic: denies: easy bleeding, easy bruising ED Past Medical Hx - Past Medical History Hx Hypertension: Yes Hx Heart Attack/AMI: Yes (2000) Hx Congestive Heart Failure: No Hx Diabetes: Yes Hx Deep Vein Thrombosis: No Additional medical history: sleep apnea with CPAP, afib - Surgical History Hx Coronary Stent: Yes (X1) Hx Open Heart Surgery: No Hx Pacemaker: No Hx Internal Defibrillator: No Hx Cholecystectomy: No Hx Appendectomy: No Hx Breast Surgery: No Additional Surgical History: tonsilectomy - Social History Smoking Status: Never Smoker Substance Use Type: None - Medications Home Medications: Home Medications Medication Instructions Recorded Confirmed Last Taken Type Cholecalciferol (Vitamin D3) 3,000 unit PO QDAY 10/28/14 08/09/17 08/08/17 History [Vitamin D3] Omeprazole 20 mg PO QDAY 10/28/14 08/09/17 05/23/17 History glipiZIDE [Glipizide ER] 2.5 mg PO QDAY 10/28/14 08/09/17 05/23/17 History Meclizine [Antivert] 25 mg PO Q8H PRN #60 tablet 10/29/14 08/09/17 05/23/17 Rx Carvedilol [Coreg] 6.25 mg PO BID 05/23/17 08/09/17 05/23/17 History Chlorthalidone 50 mg PO DAILY 05/23/17 08/09/17 08/08/17 History Lisinopril [Zestril TAB] 40 mg PO QDAY 05/23/17 08/09/17 1 Day Ago History ~08/08/17 Pravastatin [Pravachol] 20 mg PO QHS 05/23/17 08/09/17 08/08/17 History hydrALAZINE [Apresoline TAB] 100 mg PO BID 05/23/17 08/09/17 08/08/17 History Apixaban [Eliquis] 5 mg PO Q12HR #60 tablet 08/10/17 Unknown Rx ED Physical Exam - General Limitations: No Limitations General appearance: alert, in no apparent distress - Head Head exam: Present: atraumatic, normocephalic - Eye Eye exam: Present: normal appearance. Absent: scleral icterus - ENT ENT exam: Present: mucous membranes moist - Neck Neck exam: Present: normal inspection. Absent: tenderness, meningismus - Respiratory Respiratory exam: Present: normal lung sounds bilaterally. Absent: respiratory distress - Cardiovascular Cardiovascular Exam: Present: regular rate, irregular rhythm. Absent: systolic murmur, diastolic murmur, rubs, gallop - GI/Abdominal GI/Abdominal exam: Present: soft, normal bowel sounds. Absent: distended, tenderness, guarding, rebound, rigid - Rectal Rectal exam: Present: deferred - Extremities Exam Extremities exam: Present: normal inspection, normal capillary refill. Absent: tenderness, pedal edema, calf tenderness - Back Exam Back exam: Present: normal inspection - Neurological Exam Neurological exam: Present: alert, oriented X3, CN II-XII intact. Absent: motor sensory deficit - Psychiatric Psychiatric exam: Present: normal affect, normal mood - Skin Skin exam: Present: warm, dry, intact, normal color. Absent: rash ED Course Vital Signs 10/23/17 11:11 Temperature 97.6 F Pulse Rate 76 Respiratory 16 Rate Blood Pressure 132/86 O2 Sat by Pulse 95 Oximetry - Reevaluation(s) Reevaluation #1: The patient's heart rate was in the 80s on my encounter. His chest pain has resolved. His first troponin was elevated. Dr. Sam Monreal has seen him. Dr. Lee will be admitting the patient to telemetry. Further care hospitalist service with cardiology consultation. 10/23/17 13:28 Reevaluation #2: Discussed with Dr. Lee. 10/23/17 13:32 FRITZ score - Fritz Score Age > 65: (0) No Aspirin use within the Past 7 Days: (0) No 3 or more CAD Risk Factors: (1) Yes 2 or more Angina events in past 24 hrs: (0) No Known CAD with more than 50% Stenosis: (0) No Elevated Cardiac Markers: (1) Yes ST Deviation Greater than 0.5mm: (0) No FRITZ Score: 2 ED Medical Decision Making - Lab Data Result diagrams: 10/23/17 11:25 10/23/17 11:25 Laboratory Results - last 24 hr 10/23/17 10/23/17 11:25 11:25 WBC 7.5 RBC 5.06 H Hgb 16.1 H Hct 46.3 H MCV 91 MCH 32 MCHC 35 H RDW 13.2 Plt Count 132 L Lymph % (Auto) 20.7 Daniels % (Auto) 11.5 H Eos % (Auto) 1.1 Baso % (Auto) 0.4 Lymph # 1.6 Daniels # 0.9 H Eos # 0.1 Baso # 0.0 Seg Neutrophils % 66.3 Seg Neutrophils # 5.0 Sodium 140 Potassium 3.7 Chloride 103.9 Carbon Dioxide 23 Anion Gap 17 BUN 26 H Creatinine 1.5 Estimated GFR 46 BUN/Creatinine Ratio 17 Glucose 187 H Calcium 9.0 Troponin T 0.192 H* D Triglycerides 145 Cholesterol 109 LDL Cholesterol Direct 69 HDL Cholesterol 29 L Cholesterol/HDL Ratio 3.75 - EKG Data -: EKG Interpreted by Me Rate: tachycardia - EKG Data Interpretation: other (EKG shows atrial fibrillation with a rate of 106 average. There is an intraventricular conduction delay. There is a left anterior fascicular block. There is no electrocardiographic evidence of acute ischemia.) - Radiology Data Radiology results: report reviewed interpreted by me: Chest x-ray showed no acute process Critical care attestation.: If time is entered above; I have spent that time in minutes in the direct care of this critically ill patient, excluding procedure time. ED Disposition Clinical Impression: Chest pain Qualifiers: Chest pain type: chest pain due to myocardial ischemia Ischemic chest pain type : unspecified angina pectoris type Qualified Code(s): I25.9 - Chronic ischemic heart disease, unspecified CAD (coronary artery disease) Qualifiers: Coronary Disease-Associated Artery/Lesion type: unspecified vessel or lesion type [place] vs. transplanted heart: [place] heart Associated angina: with stable angina Qualified Code(s): I25.118 - Atherosclerotic heart disease of [place] coronary artery with other forms of angina pectoris Atrial fibrillation Qualifiers: Atrial fibrillation type: paroxysmal Qualified Code(s): I48.0 - Paroxysmal atrial fibrillation Disposition: -09 OP ADMIT IP TO THIS HOSP Is pt being admited?: Yes Does the pt Need Aspirin: Yes Condition: Stable Instructions: Chest Pain (ED) Referrals: PRIMARY CARE, [Primary Care Provider] - 3-5 Days Time of Disposition: 13:31
[2017-10-23 13:36] LABS: Alanine Aminotransferase 11 units/L (7-56); Albumin 3.5 g/dL (3.9-5); INR 1.13 (0.87-1.13); Partial Thromboplastin Time 38.3 Sec. (24.2-36.6)
[2017-10-23 13:42] LABS: Bilirubin,Direct < 0.2 mg/dL (0-0.2)
--- NOTE | 2017-10-23 15:29 | History and Physical Report ---
History of Present Illness Date of examination: 10/23/17 Date of admission: 10/23/17 13:48 Chief complaint: Chief complaint: Palpitations and shortness of breath since last night History of present illness: History of Present Illness: 77-year-old male----- with history of type 2 diabetes hypertension vitamin D deficiency and hyperlipidemia comes in for palpitations since last night. Patient called his orbitread operator who asked him to come to the [facility] emergency room. Patient will also include diaphoretic and short of breath last night. Also intermittent chest pain off and on since last night. Very mild and transient. Patient was told that he'll need an echocardiogram and a stress test by his orbitread operator. No other shortness of breath as well as chest pain is better continues to have palpitations but the intensity is better. Patient also takes Eliquis for atrial fibrillation. A. fib with RVR resolved spontaneously in the ER Past Medical History Hypertension: Yes Heart Attack/AMI: Yes (2000) Congestive Heart Failure: No Diabetes: Yes Additional medical history: sleep apnea with CPAP, afib Surgical History Coronary Stent: Yes (X1) Tonsillectomy Arthroscopic surgery on his left shoulder and left knee Social History Smoking Status: Never Smoker Substance Use Type: None Family history: Htn - Medications Home Medications: Home Medications Medication Instructions Recorded Confirmed Last Taken Type Cholecalciferol (Vitamin D3) 3,000 unit PO QDAY 10/28/14 08/09/17 08/08/17 History [Vitamin D3] Omeprazole 20 mg PO QDAY 10/28/14 08/09/17 05/23/17 History glipiZIDE [Glipizide ER] 2.5 mg PO QDAY 10/28/14 08/09/17 05/23/17 History Meclizine [Antivert] 25 mg PO Q8H PRN #60 tablet 10/29/14 08/09/17 05/23/17 Rx Carvedilol [Coreg] 6.25 mg PO BID 05/23/17 08/09/17 05/23/17 History Chlorthalidone 50 mg PO DAILY 05/23/17 08/09/17 08/08/17 History Lisinopril [Zestril TAB] 40 mg PO QDAY 05/23/17 08/09/17 1 Day Ago History ~08/08/17 Pravastatin [Pravachol] 20 mg PO QHS 05/23/17 08/09/17 08/08/17 History hydrALAZINE [Apresoline TAB] 100 mg PO BID 05/23/17 08/09/17 08/08/17 History Apixaban [Eliquis] 5 mg PO Q12HR #60 tablet 08/10/17 Unknown Rx Review of Systems ROS: Stated complaint: AFIB/CHEST PAIN Other details as noted in HPI Constitutional: other (sweating). denies: chills, fever Eyes: denies: eye pain, eye discharge, vision change ENT: denies: ear pain, throat pain Respiratory: shortness of breath. denies: cough, wheezing Cardiovascular: chest pain. denies: palpitations Endocrine: no symptoms reported Gastrointestinal: denies: abdominal pain, nausea, diarrhea Genitourinary: denies: urgency, dysuria Musculoskeletal: denies: back pain, joint swelling, arthralgia Skin: denies: rash, lesions Neurological: denies: headache, weakness, paresthesias Psychiatric: denies: anxiety, depression Hematological/Lymphatic: denies: easy bleeding, easy bruising point review of systems done--- otherwise negative Medications and Allergies Allergies Allergy/AdvReac Type Severity Reaction Status Date / Time No Known Allergies Allergy Verified 10/28/14 04:14 Home Medications Medication Instructions Recorded Confirmed Last Taken Type Cholecalciferol (Vitamin D3) 3,000 unit PO QDAY 10/28/14 08/09/17 08/08/17 History [Vitamin D3] Omeprazole 20 mg PO QDAY 10/28/14 08/09/17 05/23/17 History glipiZIDE [Glipizide ER] 2.5 mg PO QDAY 10/28/14 08/09/17 05/23/17 History Meclizine [Antivert] 25 mg PO Q8H PRN #60 tablet 10/29/14 08/09/17 05/23/17 Rx Carvedilol [Coreg] 6.25 mg PO BID 05/23/17 08/09/17 05/23/17 History Chlorthalidone 50 mg PO DAILY 05/23/17 08/09/17 08/08/17 History Lisinopril [Zestril TAB] 40 mg PO QDAY 05/23/17 08/09/17 1 Day Ago History ~08/08/17 Pravastatin [Pravachol] 20 mg PO QHS 05/23/17 08/09/17 08/08/17 History hydrALAZINE [Apresoline TAB] 100 mg PO BID 05/23/17 08/09/17 08/08/17 History Apixaban [Eliquis] 5 mg PO Q12HR #60 tablet 08/10/17 Unknown Rx Exam - Constitutional Vitals: Temp Pulse Resp BP Pulse Ox 97.6 F 76 16 132/86 95 10/23/17 11:11 10/23/17 11:11 10/23/17 11:11 10/23/17 11:11 10/23/17 11:11 General appearance: Present: no acute distress, well-nourished - EENT Eyes: Present: PERRL ENT: hearing intact, clear oral mucosa - Neck Neck: Present: supple, normal ROM - Respiratory Respiratory effort: normal Respiratory: bilateral: CTA - Cardiovascular Heart rate: 106 Rhythm: irregularly irregular Heart Sounds: Present: S1 & S2. Absent: rub, click - Extremities Extremities: no ischemia, pulses intact, pulses symmetrical, No edema Peripheral Pulses: within normal limits - Abdominal General gastrointestinal: Present: soft, non-tender, non-distended, normal bowel sounds Male genitourinary: Present: normal - Rectal Rectal Exam: deferred - Integumentary Integumentary: Present: clear, warm, dry - Musculoskeletal Musculoskeletal: gait normal, strength equal bilaterally - Psychiatric Psychiatric: appropriate mood/affect, intact judgment & insight - Neurologic Neurologic: CNII-XII intact, moves all extremities - Allied Health Allied health notes reviewed: nursing Results - Labs CBC & Chem 7: 10/23/17 11:25 10/23/17 11:25 Labs: Laboratory Last Values WBC 7.5 K/mm3 (4.5-11.0) 10/23/17 11:25 RBC 5.06 M/mm3 (3.65-5.03) H 10/23/17 11:25 Hgb 16.1 gm/dl (11.8-15.2) H 10/23/17 11:25 Hct 46.3 % (35.5-45.6) H 10/23/17 11:25 MCV 91 fl (84-94) 10/23/17 11:25 MCH 32 pg (28-32) 10/23/17 11:25 MCHC 35 % (32-34) H 10/23/17 11:25 RDW 13.2 % (13.2-15.2) 10/23/17 11:25 Plt Count 132 K/mm3 (140-440) L 10/23/17 11:25 Lymph % (Auto) 20.7 % (13.4-35.0) 10/23/17 11:25 [place] % (Auto) 11.5 % (0.0-7.3) H 10/23/17 11:25 Eos % (Auto) 1.1 % (0.0-4.3) 10/23/17 11:25 Baso % (Auto) 0.4 % (0.0-1.8) 10/23/17 11:25 Lymph # 1.6 K/mm3 (1.2-5.4) 10/23/17 11:25 [place] # 0.9 K/mm3 (0.0-0.8) H 10/23/17 11:25 Eos # 0.1 K/mm3 (0.0-0.4) 10/23/17 11:25 Baso # 0.0 K/mm3 (0.0-0.1) 10/23/17 11:25 Seg Neutrophils % 66.3 % (40.0-70.0) 10/23/17 11:25 Seg Neutrophils # 5.0 K/mm3 (1.8-7.7) 10/23/17 11:25 PT 15.1 Sec. (12.2-14.9) H 10/23/17 12:45 INR 1.13 (0.87-1.13) 10/23/17 12:45 APTT 38.3 Sec. (24.2-36.6) H 10/23/17 12:45 Sodium 140 mmol/L (137-145) 10/23/17 11:25 Potassium 3.7 mmol/L (3.6-5.0) 10/23/17 11:25 Chloride 103.9 mmol/L (98-107) 10/23/17 11:25 Carbon Dioxide 23 mmol/L (22-30) 10/23/17 11:25 Anion Gap 17 mmol/L 10/23/17 11:25 BUN 26 mg/dL (9-20) H 10/23/17 11:25 Creatinine 1.5 mg/dL (0.8-1.5) 10/23/17 11:25 Estimated GFR 46 ml/min 10/23/17 11:25 BUN/Creatinine Ratio 17 % 10/23/17 11:25 Glucose 187 mg/dL (75-100) H 10/23/17 11:25 Lactic Acid 1.50 mmol/L (0.7-2.0) 10/23/17 12:45 Calcium 9.0 mg/dL (8.4-10.2) 10/23/17 11:25 Magnesium 1.90 mg/dL (1.7-2.3) 10/23/17 12:45 Total Bilirubin 0.40 mg/dL (0.1-1.2) 10/23/17 12:45 Direct Bilirubin < 0.2 mg/dL (0-0.2) 10/23/17 12:45 Indirect Bilirubin 0.2 mg/dL 10/23/17 12:45 AST 15 units/L (5-40) 10/23/17 12:45 ALT 11 units/L (7-56) 10/23/17 12:45 Alkaline Phosphatase 65 units/L (35-129) 10/23/17 12:45 Troponin T 0.198 ng/mL (0.00-0.029) H* 10/23/17 12:45 NT-Pro-B Natriuret Pep 1202 pg/mL (0-900) H 10/23/17 12:45 Total Protein 6.3 g/dL (6.3-8.2) 10/23/17 12:45 Albumin 3.5 g/dL (3.9-5) L 10/23/17 12:45 Albumin/Globulin Ratio 1.3 % 10/23/17 12:45 Triglycerides 145 mg/dL (2-149) 10/23/17 11:25 Cholesterol 109 mg/dL (50-199) 10/23/17 11:25 LDL Cholesterol Direct 69 mg/dL (50-130) 10/23/17 11:25 HDL Cholesterol 29 mg/dL (40-59) L 10/23/17 11:25 Cholesterol/HDL Ratio 3.75 % 10/23/17 11:25 TSH 0.894 mlU/mL (0.270-4.200) 10/23/17 12:45 - Imaging and Cardiology EKG: report reviewed (106 atrial fibrillation incomplete right bundle branch block and left anterior fascicular block) Imaging and Cardiology: Chest x-ray FINDINGS: The cardiomediastinal silhouette is normal in appearance. The lungs are clear without focal consolidation. There is no pleural effusion or pneumothorax. There is no acute soft tissue or osseous abnormality. IMPRESSION: No acute cardiopulmonary disease. Assessment and Plan Advance Directives: Yes (full code) VTE prophylaxis?: Chemical Plan of care discussed with patient/family: Yes - Patient Problems (1) Atrial fibrillation with RVR Current Visit: Yes Status: Acute Plan to address problem: patient initiated on oral Cardizem and digoxin Heart rate has come down from 160s to 106 (2) Hypertension Onset Date: 10/28/14 Current Visit: No Status: Chronic Qualifiers: Hypertension type: essential hypertension Qualified Code(s): I10 - Essential (primary) hypertension Plan to address problem: Continue antihypertensives (3) T2DM (type 2 diabetes mellitus) Current Visit: Yes Status: Chronic Qualifiers: Diabetes mellitus welding machine feeder insulin use: without welding machine feeder use Plan to address problem: Continue oral hypoglycemics and coverage Check hemoglobin A1c (4) Hyperlipidemia Current Visit: Yes Status: Chronic Qualifiers: Hyperlipidemia type: mixed hyperlipidemia Qualified Code(s): E78.2 - Mixed hyperlipidemia Plan to address problem: Continue statins (5) GERD (gastroesophageal reflux disease) Current Visit: Yes Status: Chronic Qualifiers: Esophagitis presence: without esophagitis Qualified Code(s): K21.9 - Gastro -esophageal reflux disease without esophagitis Plan to address problem: Continue omeprazole 20 mg once daily (6) Anticoagulation management encounter Current Visit: Yes Status: Acute Plan to address problem: patient on Eliquis for atrial fibrillation--- continue the same (7) DVT prophylaxis Current Visit: Yes Status: Acute Plan to address problem: Patient on Eliquis
[2017-10-23] MEDS ORDERED: ANTIVERT PO PRN (15:49)
[2017-10-23] MEDS ORDERED: ZOFRAN IV PRN (15:51)
[2017-10-23] MEDS ORDERED: TYLENOL PO PRN (15:51)
[2017-10-23] MEDS ORDERED: MORPHINE IV PRN (15:51)
[2017-10-23] MEDS ORDERED: SODIUM CHLORIDE FLUSH SYRINGE 10 ML IV PRN (15:51)
[2017-10-23] MEDS ORDERED: PERCOCET 5/325 PO PRN (15:51)
--- NOTE | 2017-10-23 18:44 | Consultation ---
REASON FOR CONSULTATION: Atrial fibrillation and chest pain. HISTORY OF PRESENT ILLNESS: This 76-year-old patient followed in the office by Dr. Ibrahim for a long time. He has history of angioplasty of right coronary artery in 1999. He has been admitted couple of times this year with chest pain and atrial fibrillation, which is paroxysmal in nature. The patient was in the Emergency Room on of this month with chest discomfort and atrial fibrillation. After the troponins were negative couple of times, he was sent home. Again, he called me this morning telling that he has atrial fibrillation, which is bothering him and also chest pressure. Therefore, I advised him to come to Emergency Room. The patient was seen in the Emergency Room. His troponin level came back first time positive. Therefore, the patient is being admitted for further workup and possibly cardiac catheterization. He had myocardial perfusion images done in August when he was admitted for chest pain and atrial fibrillation. Then, he was noted to have fixed inferior wall defect without reversibility. Echocardiogram done in the past in 05/2017 showed normal ejection fraction 55%, mild LVH and impaired relaxation. ADDENDUM MEDICATIONS: At home include glipizide 2.5 mg once a day, carvedilol 6.25 mg twice a day, chlorthalidone 50 mg once a day, lisinopril 40 mg once a day, pravastatin 40 mg once a day, hydralazine 100 mg b.i.d. PAST MEDICAL HISTORY: He has history of acute myocardial infarction in 1999, he had angioplasty. He also has sleep apnea. As mentioned before, he is known to have diabetes and hypertension for more than 20 years. SOCIAL HISTORY: The patient does not smoke, does not take any alcohol. FAMILY HISTORY: Unremarkable. PHYSICAL EXAMINATION: GENERAL: The patient is in no acute distress. VITAL SIGNS: Blood pressure 110/70, pulse 80 per minute, regular. NECK: No JVP elevation. CARDIOVASCULAR: Irregular rhythm. No murmurs audible. LUNGS: Clear. ABDOMEN: Soft, nontender. Liver and spleen not palpable. Bowel sounds active. EXTREMITIES: No edema. Good pulses. EKG: Revealed atrial fibrillation with controlled ventricular rate. Rate ____. LABORATORY DATA: Lab tests revealed hemoglobin of 16.1 grams %, hematocrit of 46, platelet count is 132,000. Protime is 15.1, INR 1.1. Potassium 3.7, glucose is 187 mg percent. He has a troponin level of 0.192, the second is 0.198. NT-proBNP is 1202. Cholesterol is 109. Triglycerides 145, LDL 69, HDL is 29. TSH is normal at 0.894. IMPRESSION: 1. Non-ST elevation myocardial infarction. The patient has come to Emergency Room 2 times, and at this time, his troponins are positive with chest pressure. Myocardial perfusion studies done in August, which did not reveal any reversible ischemia. Therefore, we will proceed with a coronary artery angiogram. The patient does not take Eliquis at least for 2-3 days. 2. Atrial fibrillation with a controlled ventricular rate. 3. History of PTCA in 1999. 4. Diabetes mellitus type 2. JOB# [id number] ROXY/JACKIE
[2017-10-23] MEDS: GLUCOTROL XL PO SCH (19:10)
[2017-10-23] MEDS: ZESTRIL PO SCH (19:10)
[2017-10-23] MEDS: THALITONE PO SCH (19:10)
[2017-10-23] MEDS: VITAMIN D3 PO SCH (19:11)
[2017-10-23] MEDS: CARDIZEM CD PO SCH (19:26)
[2017-10-23] MEDS: LANOXIN PO SCH (19:27)
[2017-10-23] MEDS ORDERED: AMBIEN PO PRN (22:00)
[2017-10-23] MEDS: PROTONIX PO SCH (22:19)
[2017-10-23] MEDS: PRAVACHOL PO SCH (22:19)
[2017-10-23] MEDS: COREG PO SCH (22:20)
[2017-10-23] MEDS: APRESOLINE PO SCH (22:20)
[2017-10-23] MEDS: SODIUM CHLORIDE FLUSH SYRINGE 10 ML IV SCH (22:21)
[2017-10-23] MEDS: ELIQUIS PO SCH (22:21)
[2017-10-23] MEDS ORDERED: FLONASE NS PRN (22:44)
[2017-10-23] MEDS: HumaLOG SUB-Q SCH (23:35)
[2017-10-24 03:52] LABS: Bilirubin,Urine NEG (Negative); Blood,Urine NEG (Negative); Color,Urine Yellow (Yellow); Protein,Urine <15 mg/dL mg/dL (Negative); RBC,Urine < 1.0 /HPF (0.0-6.0); Urobilinogen,Urine < 2.0 mg/dL (<2.0); WBC,Urine < 1.0 /HPF (0.0-6.0)
[2017-10-24 05:12] LABS: Basophils % (Auto) 0.3 % (0.0-1.8); Eosinophils # (Auto) 0.2 K/mm3 (0.0-0.4); Eosinophils % (Auto) 1.5 % (0.0-4.3); Hematocrit 45.3 % (35.5-45.6); Hemoglobin 15.3 gm/dl (11.8-15.2); Lymphocytes # (Auto) 1.7 K/mm3 (1.2-5.4); Lymphocytes % (Auto) 17.1 % (13.4-35.0); Mean Corpuscular HGB Conc 34 % (32-34); Mean Corpuscular Hemoglobin 31 pg (28-32); Mean Corpuscular Volume 93 fl (84-94); Monocytes # (Auto) 1.1 K/mm3 (0.0-0.8); Monocytes % (Auto) 11.2 % (0.0-7.3); Platelet Count 122 K/mm3 (140-440); Red Blood Count 4.89 M/mm3 (3.65-5.03); Red Cell Distribution Width 13.3 % (13.2-15.2)
[2017-10-24 05:22] LABS: INR 1.12 (0.87-1.13)
[2017-10-24 05:34] LABS: Albumin 3.5 g/dL (3.9-5); Calcium 9.1 mg/dL (8.4-10.2)
[2017-10-24] MEDS: HumaLOG SUB-Q SCH ×5 (08:06→21:44)
[2017-10-24] MEDS: VITAMIN D3 PO SCH (12:41)
[2017-10-24] MEDS: ELIQUIS PO SCH (12:42)
[2017-10-24] MEDS: ZESTRIL PO SCH (12:43)
[2017-10-24] MEDS: CARDIZEM CD PO SCH (12:43)
[2017-10-24] MEDS: GLUCOTROL XL PO SCH (12:44)
[2017-10-24] MEDS: APRESOLINE PO SCH ×2 (12:44→21:43)
[2017-10-24] MEDS: COREG PO SCH ×2 (12:44→21:43)
[2017-10-24] MEDS: PROTONIX PO SCH (12:44)
[2017-10-24] MEDS: SODIUM CHLORIDE FLUSH SYRINGE 10 ML IV SCH ×2 (12:45→21:46)
[2017-10-24] MEDS: THALITONE PO SCH (12:53)
--- NOTE | 2017-10-24 13:14 | Progress Note ---
Assessment and Plan Assessment: NSTEMI Paroxysmal atrial fibrillation - anticoagulated with Eliquis at home CAD s/p PCI HTN HLP DM H/o vertigo Plan: Pt's last dose of Eliquis was 10/23 AM. Will post-pone LHC and plan for LHC in AM. NPO after MN. Assessment and plan reviewed with pt at bedside. The patient has been seen in conjunction with Dr. Reid who agrees with the assessment and plan of care. Subjective Date of service: 10/24/17 Principal diagnosis: NSTEMI Interval history: pt resting comfortably in bed, had intermittent chest pain overnight, currently chest pain free. Objective Last Vital Signs Temp 97.6 F 10/24/17 07:51 Pulse 71 10/24/17 10:00 Resp 16 10/24/17 10:00 BP 153/75 10/24/17 07:51 Pulse Ox 96 10/24/17 10:00 - Physical Examination General: No Apparent Distress HEENT: Positive: PERRL, Normocephaly, Mucus Membranes Moist Neck: Positive: neck supple, trachea midline Cardiac: Positive: Reg Rate and Rhythm, S1/S2 Lungs: Positive: clear to auscultation Neuro: Positive: Grossly Intact, Cranial Nerve 2-12 Intact Abdomen: Positive: Soft. Negative: Tender Skin: Positive: Clear. Negative: Rash, Wound Musculoskeletal: No Fluid Collection, No Pain, Normal Range of Motion Extremities: Absent: edema - Labs and Meds Cardiac Enzymes 10/23/17 10/24/17 Range/Units 12:45 04:36 AST 15 14 (5-40) units/L Coagulation 10/23/17 10/24/17 Range/Units 12:45 04:36 PT 15.1 H 15.0 H (12.2-14.9) Sec. INR 1.13 1.12 (0.87-1.13) APTT 38.3 H (24.2-36.6) Sec. CBC 10/24/17 Range/Units 04:36 WBC 9.7 (4.5-11.0) K/mm3 RBC 4.89 (3.65-5.03) M/mm3 Hgb 15.3 H (11.8-15.2) gm/dl Hct 45.3 (35.5-45.6) % Plt Count 122 L (140-440) K/mm3 Lymph # 1.7 (1.2-5.4) K/mm3 [place] # 1.1 H (0.0-0.8) K/mm3 Eos # 0.2 (0.0-0.4) K/mm3 Baso # 0.0 (0.0-0.1) K/mm3 Comprehensive Metabolic Panel 10/23/17 10/24/17 Range/Units 12:45 04:36 Sodium 142 (137-145) mmol/L Potassium 3.4 L (3.6-5.0) mmol/L Chloride 104.3 (98-107) mmol/L Carbon Dioxide 26 (22-30) mmol/L BUN 25 H (9-20) mg/dL Creatinine 1.3 (0.8-1.5) mg/dL Glucose 133 H (75-100) mg/dL Calcium 9.1 (8.4-10.2) mg/dL Direct Bilirubin < 0.2 (0-0.2) mg/dL Indirect Bilirubin 0.2 mg/dL AST 15 14 (5-40) units/L ALT 11 11 (7-56) units/L Alkaline Phosphatase 65 59 (35-129) units/L Total Protein 6.3 6.0 L (6.3-8.2) g/dL Albumin 3.5 L 3.5 L (3.9-5) g/dL - Imaging and Cardiology EKG: report reviewed (106 atrial fibrillation incomplete right bundle branch block and left anterior fascicular block) - Telemetry EKG Rhythm: Sinus Rhythm
[2017-10-24] MEDS ORDERED: K-DUR PO NR (13:18)
--- NOTE | 2017-10-24 16:19 | Progress Note ---
Assessment and Plan Assessment and plan: 77-year-old male----- with history of type 2 diabetes hypertension vitamin D deficiency and hyperlipidemia comes in for palpitations since last night. Patient called his steel wool machine operator who asked him to come to the [facility] emergency room. Patient will also include diaphoretic and short of breath last night. Also intermittent chest pain off and on since last night. Very mild and transient. Patient was told that he'll need an echocardiogram and a stress test by his steel wool machine operator. No other shortness of breath as well as chest pain is better continues to have palpitations but the intensity is better. Patient also takes Eliquis for atrial fibrillation. A. fib with RVR resolved spontaneously in the ER - Continue on cognition and rate control medication Hypertension - Continue home medications Non-STEMI - Continue current medication regimen - Patient will have cardiac cath tomorrow Diabetes mellitus his hyperglycemia - Sliding-scale insulin - accu-check, ADA date DVT prophylaxis - Patient is on Eliquis Disposition - Continue inpatient care History Interval history: Patient was seen and evaluated this morning, patient has mild chest discomfort and palpitation. Hospitalist Physical - Physical exam Narrative exam: Not in cardiopulmonary distress. The patient is obese. Vital signs as documented. Head exam is unremarkable. No scleral icterus . Neck is without jugular venous distension, thyromegaly, or carotid bruits. Lungs are clear to auscultation. Cardiac exam reveals irregular rate and Rhythm. Abdominal exam reveals normal bowel sounds, no masses, no organomegaly and no aortic enlargement. Extremities are nonedematous and both femoral and pedal pulses are normal. SHIRT FOLDER: Alert and oriented 3. No focal weakness. - Constitutional Vitals: Temp Pulse Resp BP Pulse Ox 97.6 F 71 16 153/75 96 10/24/17 07:51 10/24/17 10:00 10/24/17 10:00 10/24/17 07:51 10/24/17 10:00 General appearance: Present: no acute distress, well-nourished Results - Labs CBC & Chem 7: 10/24/17 04:36 10/24/17 04:36 Labs: Laboratory Last Values WBC 9.7 K/mm3 (4.5-11.0) 10/24/17 04:36 RBC 4.89 M/mm3 (3.65-5.03) 10/24/17 04:36 Hgb 15.3 gm/dl (11.8-15.2) H 10/24/17 04:36 Hct 45.3 % (35.5-45.6) 10/24/17 04:36 MCV 93 fl (84-94) 10/24/17 04:36 MCH 31 pg (28-32) 10/24/17 04:36 MCHC 34 % (32-34) 10/24/17 04:36 RDW 13.3 % (13.2-15.2) 10/24/17 04:36 Plt Count 122 K/mm3 (140-440) L 10/24/17 04:36 Lymph % (Auto) 17.1 % (13.4-35.0) 10/24/17 04:36 [place] % (Auto) 11.2 % (0.0-7.3) H 10/24/17 04:36 Eos % (Auto) 1.5 % (0.0-4.3) 10/24/17 04:36 Baso % (Auto) 0.3 % (0.0-1.8) 10/24/17 04:36 Lymph # 1.7 K/mm3 (1.2-5.4) 10/24/17 04:36 [place] # 1.1 K/mm3 (0.0-0.8) H 10/24/17 04:36 Eos # 0.2 K/mm3 (0.0-0.4) 10/24/17 04:36 Baso # 0.0 K/mm3 (0.0-0.1) 10/24/17 04:36 Seg Neutrophils % 69.9 % (40.0-70.0) 10/24/17 04:36 Seg Neutrophils # 6.8 K/mm3 (1.8-7.7) 10/24/17 04:36 PT 15.0 Sec. (12.2-14.9) H 10/24/17 04:36 INR 1.12 (0.87-1.13) 10/24/17 04:36 APTT 38.3 Sec. (24.2-36.6) H 10/23/17 12:45 Sodium 142 mmol/L (137-145) 10/24/17 04:36 Potassium 3.4 mmol/L (3.6-5.0) L 10/24/17 04:36 Chloride 104.3 mmol/L (98-107) 10/24/17 04:36 Carbon Dioxide 26 mmol/L (22-30) 10/24/17 04:36 Anion Gap 15 mmol/L 10/24/17 04:36 BUN 25 mg/dL (9-20) H 10/24/17 04:36 Creatinine 1.3 mg/dL (0.8-1.5) 10/24/17 04:36 Estimated GFR 54 ml/min 10/24/17 04:36 BUN/Creatinine Ratio 19 % 10/24/17 04:36 Glucose 133 mg/dL (75-100) H 10/24/17 04:36 POC Glucose 127 (70-105) H 10/24/17 11:41 Hemoglobin A1c 6.3 % (4-6) H 10/23/17 19:43 Lactic Acid 1.50 mmol/L (0.7-2.0) 10/23/17 12:45 Calcium 9.1 mg/dL (8.4-10.2) 10/24/17 04:36 Magnesium 1.90 mg/dL (1.7-2.3) 10/23/17 12:45 Total Bilirubin 0.50 mg/dL (0.1-1.2) 10/24/17 04:36 Direct Bilirubin < 0.2 mg/dL (0-0.2) 10/23/17 12:45 Indirect Bilirubin 0.2 mg/dL 10/23/17 12:45 AST 14 units/L (5-40) 10/24/17 04:36 ALT 11 units/L (7-56) 10/24/17 04:36 Alkaline Phosphatase 59 units/L (35-129) 10/24/17 04:36 Troponin T 0.200 ng/mL (0.00-0.029) H* 10/23/17 19:43 NT-Pro-B Natriuret Pep 1202 pg/mL (0-900) H 10/23/17 12:45 Total Protein 6.0 g/dL (6.3-8.2) L 10/24/17 04:36 Albumin 3.5 g/dL (3.9-5) L 10/24/17 04:36 Albumin/Globulin Ratio 1.4 % 10/24/17 04:36 Triglycerides 145 mg/dL (2-149) 10/23/17 11:25 Cholesterol 109 mg/dL (50-199) 10/23/17 11:25 LDL Cholesterol Direct 69 mg/dL (50-130) 10/23/17 11:25 HDL Cholesterol 29 mg/dL (40-59) L 10/23/17 11:25 Cholesterol/HDL Ratio 3.75 % 10/23/17 11:25 TSH 0.894 mlU/mL (0.270-4.200) 10/23/17 12:45 Urine Color Yellow (Yellow) 10/23/17 03:40 Urine Turbidity Clear (Clear) 10/23/17 03:40 Urine pH 6.0 (5.0-7.0) 10/23/17 03:40 Ur Specific [place] 1.015 (1.003-1.030) 10/23/17 03:40 Urine Protein <15 mg/dl mg/dL (Negative) 10/23/17 03:40 Urine Glucose (UA) Neg mg/dL (Negative) 10/23/17 03:40 Urine Ketones Neg mg/dL (Negative) 10/23/17 03:40 Urine Blood Neg (Negative) 10/23/17 03:40 Urine Nitrite Neg (Negative) 10/23/17 03:40 Urine Bilirubin Neg (Negative) 10/23/17 03:40 Urine Urobilinogen < 2.0 mg/dL (<2.0) 10/23/17 03:40 Ur Leukocyte Esterase Neg (Negative) 10/23/17 03:40 Urine WBC (Auto) < 1.0 /HPF (0.0-6.0) 10/23/17 03:40 Urine RBC (Auto) < 1.0 /HPF (0.0-6.0) 10/23/17 03:40
[2017-10-24] MEDS ORDERED: NACL 0.9% 500 ML 500 ML IV SCH (17:00)
[2017-10-24] MEDS: LANOXIN PO SCH (18:43)
[2017-10-24] MEDS: PRAVACHOL PO SCH (21:44)
[2017-10-25] MEDS ORDERED: NACL 0.9% 500 ML 500 ML IV SCH (05:00)
[2017-10-25 06:09] LABS: Calcium 9.4 mg/dL (8.4-10.2)
[2017-10-25] MEDS: HumaLOG SUB-Q SCH ×3 (07:30→23:17)
[2017-10-25] MEDS ORDERED: ECOTRIN PO NR (07:36)
[2017-10-25] MEDS ORDERED: HEPARIN/NS 5000 UNIT/500ML(CATH LAB) 1,000 ML IR ONE (08:08)
[2017-10-25] MEDS ORDERED: NACL 0.9% 500 ML 500 ML ONE (08:09)
[2017-10-25] MEDS: VERSED ONE ×3 (09:02→09:15)
[2017-10-25] MEDS: SUBLIMAZE ONE ×2 (09:02→09:07)
[2017-10-25] MEDS: CALAN ONE ×2 (09:02→09:11)
[2017-10-25] MEDS: XYLOCAINE 2% INFILTRATI ONE ×2 (09:02→09:11)
[2017-10-25] MEDS: HEPARIN 10,000 UNITS/10 ML ONE ×3 (09:03→09:20)
[2017-10-25] MEDS: NITROGLYCERIN SYRINGE 3 ML ONE ×2 (09:05→09:11)
[2017-10-25] MEDS ORDERED: K-DUR PO NR (09:14)
[2017-10-25] MEDS ORDERED: PLAVIX ONE (09:37)
[2017-10-25] MEDS ORDERED: ALUM-MAG HYDROX-SIMETH 200-200-20MG/5ML ONE (09:37)
[2017-10-25] MEDS ORDERED: ASPIRIN PO SCH (10:00)
[2017-10-25] MEDS ORDERED: NACL 0.9% 1000 ML 1,000 ML IV SCH (10:00)
--- NOTE | 2017-10-25 10:02 | Progress Note ---
Assessment and Plan Non-STEMI1 Acute diastolic dysfunction Acute renal insufficiency Proximal atrial fibrillation CAD Hypertension Diabetes Hyperlipidemia Recommend triple cocktail and continue aspirin and Plavix and elquis and DC Coreg and Cardizem and start Lopressor 50 mg twice a day continue digoxin and will check a digoxin level continue statin post-PCI care via the right radial approach continue IV fluids and monitor labs in a.m. Subjective Date of service: 10/25/17 Principal diagnosis: NSTEMI Interval history: Patient is currently chest pain-free Objective Vital Signs Temp Pulse Pulse Resp BP BP Pulse Ox 10/25/17 07:32 97.3 F L 64 18 128/77 95 10/25/17 04:58 98.4 F 57 L 18 140/69 95 10/25/17 02:00 60 10/24/17 23:32 98.5 F 64 18 98/60 94 10/24/17 22:00 74 18 98 10/24/17 19:46 98.2 F 68 18 141/75 96 10/24/17 19:07 98.6 F 72 136/78 10/24/17 10:00 71 16 96 - Physical Examination General: No Apparent Distress HEENT: Positive: PERRL, Normocephaly, Mucus Membranes Moist Neck: Positive: neck supple, trachea midline Cardiac: Positive: Irregularly Regular Lungs: Positive: clear to auscultation Neuro: Positive: Grossly Intact, Cranial Nerve 2-12 Intact Abdomen: Positive: Soft. Negative: Tender Skin: Positive: Clear. Negative: Rash, Wound Musculoskeletal: No Fluid Collection, No Pain, Normal Range of Motion Extremities: Absent: edema - Labs and Meds Comprehensive Metabolic Panel 10/25/17 Range/Units 05:03 Sodium 141 (137-145) mmol/L Potassium 3.4 L (3.6-5.0) mmol/L Chloride 102.2 (98-107) mmol/L Carbon Dioxide 24 (22-30) mmol/L BUN 23 H (9-20) mg/dL Creatinine 1.5 (0.8-1.5) mg/dL Glucose 142 H (75-100) mg/dL Calcium 9.4 (8.4-10.2) mg/dL - Imaging and Cardiology EKG: report reviewed (106 atrial fibrillation incomplete right bundle branch block and left anterior fascicular block) Cardiac cath: report reviewed (left Main large patent LAD proximal ectatic mid to distal patent diffuse disease with focal areas of 30-40% circumflex and AV groove ectatic with patent OM1 to 3 RCA large ectatic vessel distal in-stent restenosis 95% with normal LV function PCI of the distal RCA with a drug- eluting resolute 4.0 x 26 mm) - Telemetry EKG Rhythm: Sinus Rhythm
[2017-10-25] MEDS ORDERED: NACL 0.9% 1000 ML 1,000 ML ONE (10:39)
[2017-10-25] MEDS ORDERED: LOPRESSOR PO SCH (11:00)
[2017-10-25] MEDS ORDERED: BABY ASPIRIN PO SCH (11:00)
[2017-10-25] MEDS ORDERED: PERCOCET 5/325 ONE (11:42)
--- NOTE | 2017-10-25 12:58 | Cardiac Catherization Report ---
LEFT HEART CATHETERIZATION AND PERCUTANEOUS CORONARY INTERVENTIONAL REPORT PRIMARY SPECIAL POLICE: Jai Ibrahim MD. CLINICAL INFORMATION: This is a 77-year-old gentleman with a history of atrial fibrillation, chronic renal insufficiency, non-ST elevation, chest pain with a history of known coronary artery disease with PCI of the RCA in 1999, was on Eliquis therapy, is here for a left heart catheterization. This is a left heart cath/percutaneous coronary interventional report. The patient was done under moderate sedation, supervised. Total sedation time was 40 minutes. Start time is 0911 and finished at 09:51 a.m. Total sedation was 1.25 mg of Versed and 50 mcg of fentanyl. Procedure was done via the right radial artery, sterile technique, local anesthesia, 6-Irish radial sheath inserted. PROCEDURE FINDINGS: 1. Left system engaged with JL3.5 catheter. Left main is large and patent, bifurcates into a large ectatic proximal LAD there and then the mid to distal LAD is a medium caliber vessel with diffuse 30% disease with focal areas noted. Diagonal 1 and diagonal 2 are small caliber vessels, patent. Circumflex and AV groove is also large and ectatic in the AV groove and bifurcates into small OM1, OM2 and OM3, they are 2 mm in size And they are patent with mild tortuosity. 2. RCA engaged with JR4, is a large dominate, moderate tortuous vessel, ectatic in the proximal mid section, up to the crux and then distal RCA stent has a 99% in-stent restenosis in the midportion. There is ectasia prior to the stent and bifurcates into a small caliber PDA, PLV. 3. LV gram done in BELARUSIAN and STOLL view, shows normal LV function, EF 55%-60%, LVEDP is 17 mmHg, LV is 155/17, and aortic is 146/71. No gradient across the aortic valve on pullback. PERCUTANEOUS CORONARY INTERVENTION OF RIGHT CORONARY ARTERY: 1. Engaged RCA with 6-Irish JR4 guiding catheter. 2. Crossed into the PLV with a short [place] wire. 3. Predilated within the stent with a 2.5 x 12 mm balloon at 15 atmospheres x 3 inflations. 4. Then placed a 4.0 x 26 drug-eluting Resolute stent within the stent for in-stent restenosis and inflated at 15 atmospheres. Excellent angiographic result, good stent apposition and expansion noted. There is some ectasia prior to the stenting noted, but FRITZ 3 flow and increased size of the PDA, PLV to 2.0 to 2.5 mm vessels now. Increased flow into the distal vessels after stenting. 5. Removed coronary wire. Multiple angiograms, excellent angiographic result. No dissection, no perforation, no embolization noted. 6. A 6-Irish guiding catheter taken over guidewire, 6-Irish radial sheath was discontinued. Radial dressing applied. No hematoma, no bleeding. SUMMARY: 1. Successful PCI of the distal RCA for in-stent restenosis with a drug-eluting Resolute 4.0 x 26 at 15 atmospheres, increased size of distal PDA, PLV after stenting, the whole RCA is ectatic and almost aneurysmal. 2. Left main is patent, LAD proximal is ectatic, almost aneurysmal, but mid to distal has diffuse disease with focal areas of 30%-40% and circumflex and AV groove is also ectatic, almost aneurysmal and with OM1, OM2, OM3 and they are patent with normal LV function. The patient will be on aspirin 81, Plavix 75, and Eliquis 5 b.i.d. and post-PCI care. JOB# [id number] MAR/JACKIE
[2017-10-25] MEDS: ZESTRIL PO SCH (15:25)
[2017-10-25] MEDS: APRESOLINE PO SCH ×2 (15:25→23:12)
[2017-10-25] MEDS: GLUCOTROL XL PO SCH (15:26)
[2017-10-25] MEDS: VITAMIN D3 PO SCH (15:26)
[2017-10-25] MEDS: PROTONIX PO SCH (15:26)
[2017-10-25] MEDS: THALITONE PO SCH (15:27)
[2017-10-25] MEDS: SODIUM CHLORIDE FLUSH SYRINGE 10 ML IV SCH ×2 (15:28→23:11)
--- NOTE | 2017-10-25 17:18 | Progress Note ---
Assessment and Plan Assessment and plan: 77-year-old male----- with history of type 2 diabetes hypertension vitamin D deficiency and hyperlipidemia comes in for palpitations since last night. Patient called his beef lugger who asked him to come to the [facility] emergency room. Patient will also include diaphoretic and short of breath last night. Also intermittent chest pain off and on since last night. Very mild and transient. Patient was told that he'll need an echocardiogram and a stress test by his beef lugger. No other shortness of breath as well as chest pain is better continues to have palpitations but the intensity is better. Patient also takes Eliquis for atrial fibrillation. A. fib with RVR resolved spontaneously in the ER - Continue on cognition and rate control medication Hypertension - Continue home medications Non-STEMI - Patient has in-stent thrombosis and stent was placed - Continue in the eliquis, Plavix , carvedilol Diabetes mellitus his hyperglycemia - Sliding-scale insulin - accu-check, ADA date DVT prophylaxis - Patient is on Eliquis Disposition - Continue inpatient care - Post discharge tomorrow morning History Interval history: Patient was seen and evaluated this morning, patient had cardiac cath this morning. Hospitalist Physical - Physical exam Narrative exam: Not in cardiopulmonary distress. The patient is obese. Vital signs as documented. Head exam is unremarkable. No scleral icterus . Neck is without jugular venous distension, thyromegaly, or carotid bruits. Lungs are clear to auscultation. Cardiac exam reveals irregular rate and Rhythm. Abdominal exam reveals normal bowel sounds, no masses, no organomegaly and no aortic enlargement. Extremities are nonedematous and both femoral and pedal pulses are normal. 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 No focal weakness. - Constitutional Vitals: Temp Pulse Resp BP Pulse Ox 97.9 F 71 20 117/63 95 10/25/17 16:10 10/25/17 16:10 10/25/17 16:10 10/25/17 16:10 10/25/17 16:10 General appearance: Present: no acute distress, well-nourished Results - Labs CBC & Chem 7: 10/24/17 04:36 10/25/17 05:03 Labs: Laboratory Last Values WBC 9.7 K/mm3 (4.5-11.0) 10/24/17 04:36 RBC 4.89 M/mm3 (3.65-5.03) 10/24/17 04:36 Hgb 15.3 gm/dl (11.8-15.2) H 10/24/17 04:36 Hct 45.3 % (35.5-45.6) 10/24/17 04:36 MCV 93 fl (84-94) 10/24/17 04:36 MCH 31 pg (28-32) 10/24/17 04:36 MCHC 34 % (32-34) 10/24/17 04:36 RDW 13.3 % (13.2-15.2) 10/24/17 04:36 Plt Count 122 K/mm3 (140-440) L 10/24/17 04:36 Lymph % (Auto) 17.1 % (13.4-35.0) 10/24/17 04:36 [place] % (Auto) 11.2 % (0.0-7.3) H 10/24/17 04:36 Eos % (Auto) 1.5 % (0.0-4.3) 10/24/17 04:36 Baso % (Auto) 0.3 % (0.0-1.8) 10/24/17 04:36 Lymph # 1.7 K/mm3 (1.2-5.4) 10/24/17 04:36 [place] # 1.1 K/mm3 (0.0-0.8) H 10/24/17 04:36 Eos # 0.2 K/mm3 (0.0-0.4) 10/24/17 04:36 Baso # 0.0 K/mm3 (0.0-0.1) 10/24/17 04:36 Seg Neutrophils % 69.9 % (40.0-70.0) 10/24/17 04:36 Seg Neutrophils # 6.8 K/mm3 (1.8-7.7) 10/24/17 04:36 PT 15.0 Sec. (12.2-14.9) H 10/24/17 04:36 INR 1.12 (0.87-1.13) 10/24/17 04:36 APTT 38.3 Sec. (24.2-36.6) H 10/23/17 12:45 Sodium 141 mmol/L (137-145) 10/25/17 05:03 Potassium 3.4 mmol/L (3.6-5.0) L 10/25/17 05:03 Chloride 102.2 mmol/L (98-107) 10/25/17 05:03 Carbon Dioxide 24 mmol/L (22-30) 10/25/17 05:03 Anion Gap 18 mmol/L 10/25/17 05:03 BUN 23 mg/dL (9-20) H 10/25/17 05:03 Creatinine 1.5 mg/dL (0.8-1.5) 10/25/17 05:03 Estimated GFR 46 ml/min 10/25/17 05:03 BUN/Creatinine Ratio 15 % 10/25/17 05:03 Glucose 142 mg/dL (75-100) H 10/25/17 05:03 POC Glucose 121 (70-105) H 10/25/17 16:18 Hemoglobin A1c 6.3 % (4-6) H 10/23/17 19:43 Lactic Acid 1.50 mmol/L (0.7-2.0) 10/23/17 12:45 Calcium 9.4 mg/dL (8.4-10.2) 10/25/17 05:03 Magnesium 1.90 mg/dL (1.7-2.3) 10/23/17 12:45 Total Bilirubin 0.50 mg/dL (0.1-1.2) 10/24/17 04:36 Direct Bilirubin < 0.2 mg/dL (0-0.2) 10/23/17 12:45 Indirect Bilirubin 0.2 mg/dL 10/23/17 12:45 AST 14 units/L (5-40) 10/24/17 04:36 ALT 11 units/L (7-56) 10/24/17 04:36 Alkaline Phosphatase 59 units/L (35-129) 10/24/17 04:36 Troponin T 0.200 ng/mL (0.00-0.029) H* 10/23/17 19:43 NT-Pro-B Natriuret Pep 1202 pg/mL (0-900) H 10/23/17 12:45 Total Protein 6.0 g/dL (6.3-8.2) L 10/24/17 04:36 Albumin 3.5 g/dL (3.9-5) L 10/24/17 04:36 Albumin/Globulin Ratio 1.4 % 10/24/17 04:36 Triglycerides 145 mg/dL (2-149) 10/23/17 11:25 Cholesterol 109 mg/dL (50-199) 10/23/17 11:25 LDL Cholesterol Direct 69 mg/dL (50-130) 10/23/17 11:25 HDL Cholesterol 29 mg/dL (40-59) L 10/23/17 11:25 Cholesterol/HDL Ratio 3.75 % 10/23/17 11:25 TSH 0.894 mlU/mL (0.270-4.200) 10/23/17 12:45 Urine Color Yellow (Yellow) 10/23/17 03:40 Urine Turbidity Clear (Clear) 10/23/17 03:40 Urine pH 6.0 (5.0-7.0) 10/23/17 03:40 Ur Specific [place] 1.015 (1.003-1.030) 10/23/17 03:40 Urine Protein <15 mg/dl mg/dL (Negative) 10/23/17 03:40 Urine Glucose (UA) Neg mg/dL (Negative) 10/23/17 03:40 Urine Ketones Neg mg/dL (Negative) 10/23/17 03:40 Urine Blood Neg (Negative) 10/23/17 03:40 Urine Nitrite Neg (Negative) 10/23/17 03:40 Urine Bilirubin Neg (Negative) 10/23/17 03:40 Urine Urobilinogen < 2.0 mg/dL (<2.0) 10/23/17 03:40 Ur Leukocyte Esterase Neg (Negative) 10/23/17 03:40 Urine WBC (Auto) < 1.0 /HPF (0.0-6.0) 10/23/17 03:40 Urine RBC (Auto) < 1.0 /HPF (0.0-6.0) 10/23/17 03:40
[2017-10-25] MEDS: PRAVACHOL PO SCH (23:12)
[2017-10-25] MEDS: COREG PO SCH (23:12)
[2017-10-25] MEDS: ELIQUIS PO SCH (23:12)
[2017-10-26 07:07] LABS: Basophils % (Auto) 0.3 % (0.0-1.8); Eosinophils # (Auto) 0.2 K/mm3 (0.0-0.4); Eosinophils % (Auto) 2.1 % (0.0-4.3); Hematocrit 44.6 % (35.5-45.6); Hemoglobin 15.1 gm/dl (11.8-15.2); Lymphocytes # (Auto) 0.8 K/mm3 (1.2-5.4); Lymphocytes % (Auto) 11.1 % (13.4-35.0); Mean Corpuscular HGB Conc 34 % (32-34); Mean Corpuscular Hemoglobin 31 pg (28-32); Mean Corpuscular Volume 93 fl (84-94); Monocytes % (Auto) 14.2 % (0.0-7.3); Platelet Count 123 K/mm3 (140-440); Red Blood Count 4.82 M/mm3 (3.65-5.03); Red Cell Distribution Width 13.5 % (13.2-15.2)
[2017-10-26 07:31] LABS: BUN/Creatinine Ratio 18; Blood Urea Nitrogen 29 mg/dL (9-20); Calcium 8.8 mg/dL (8.4-10.2); Hemolysis Index 7
[2017-10-26 07:34] LABS: Creatine Kinase MB < 1.0 ng/mL (0.0-4.0)
--- NOTE | 2017-10-26 09:13 | XRay Report ---
AP CHEST: HISTORY: Post PCI AP view of the chest demonstrates a normal mediastinal and cardiac contour with clear lungs and normal bony and soft tissue structures. IMPRESSION: Unremarkable AP chest.
[2017-10-26] MEDS: PROTONIX PO SCH (09:58)
[2017-10-26] MEDS: VITAMIN D3 PO SCH (09:58)
[2017-10-26] MEDS: ELIQUIS PO SCH (09:59)
[2017-10-26] MEDS: ZESTRIL PO SCH (09:59)
[2017-10-26] MEDS: GLUCOTROL XL PO SCH (09:59)
[2017-10-26] MEDS: HumaLOG SUB-Q SCH (10:00)
[2017-10-26] MEDS: THALITONE PO SCH (10:00)
[2017-10-26] MEDS: COREG PO SCH (10:00)
[2017-10-26] MEDS ORDERED: PLAVIX PO SCH (10:00)
[2017-10-26] MEDS: APRESOLINE PO SCH (10:03)
[2017-10-26] MEDS: SODIUM CHLORIDE FLUSH SYRINGE 10 ML IV SCH (10:03)
--- NOTE | 2017-10-26 10:27 | Discharge Summary ---
Providers - Providers Date of Admission: 10/23/17 13:48 Attending physician: GRANT SMITH MD 10/23/17 12:24 Consult to Physician [CONS] Urgent Comment: Consulting Provider: AGUILAR PASCAL Physician Instructions: Reason For Exam: AF RVR elevated trop 10/25/17 Consult to Cardiac Rehabilitation [CONS] Routine Reason For Exam: post pci Primary care physician: BABY NURSE Hospitalization Reason for admission: NSTEMI, chronic atrial fibrillation Condition: Stable Pertinent studies: Left heart cath RCA in-stent thrombosis and stent was placed Hospital course: 77-year-old male----- with history of type 2 diabetes hypertension vitamin D deficiency and hyperlipidemia comes in for palpitations since last night. 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 Patient will also include diaphoretic and short of breath last night. Also intermittent chest pain off and on since last night. Very mild and transient. Patient was told that he'll need an echocardiogram and a stress test by his edge glue machine tender. No other shortness of breath as well as chest pain is better continues to have palpitations but the intensity is better. Patient also takes Eliquis for atrial fibrillation. A. fib with RVR resolved spontaneously in the ER NSTEMI type I - s/p PCI of distal RCA for in-stent restenosis Paroxysmal atrial fibrillation - anticoagulated with Eliquis CAD s/p PCI of RCA in 1999 HTN HLP DM H/o vertigo Currently stable cardiac status. Cont present cardiac regimen, including ASA 81 , plavix, eliquis, coreg, lisinopril, pravastatin. Pt was cleared for discharge by cardiology. Patient was hemodynamically stable at the time of discharge. Follow up in our [place] office with Dr. Ibrahim on 11/01/2017 @ 2:45PM. Disposition: DC-01 TO HOME OR SELFCARE Time spent for discharge: 32 minutes - Discharge Diagnoses (1) NSTEMI (non-ST elevated myocardial infarction) Status: Acute (2) Coronary stent thrombosis Status: Acute (3) Atrial fibrillation Status: Acute Qualifiers: Atrial fibrillation type: paroxysmal Qualified Code(s): I48.0 - Paroxysmal atrial fibrillation (4) Atrial fibrillation with RVR Status: Acute (5) Diabetes type 2, controlled Status: Acute (6) CAD (coronary artery disease) Status: Chronic Qualifiers: Coronary Disease-Associated Artery/Lesion type: unspecified vessel or lesion type [place] vs. transplanted heart: tribe heart Associated angina: with stable angina Qualified Code(s): I25.118 - Atherosclerotic heart disease of tribe coronary artery with other forms of angina pectoris Core Measure Documentation - Palliative Care Palliative Care/ Comfort Measures: Not Applicable - Core Measures Any of the following diagnoses?: acute TX - Acute TX Discharge Requirements Aspirin at discharge: Yes COLT/ARB for LVSD if EF <40%: Yes Beta meghna at discharge: Yes Statin for LDL = or >100 mg/dl on DC: Yes Exam - Physical Exam Narrative exam: Not in cardiopulmonary distress. The patient is obese. Vital signs as documented. Head exam is unremarkable. No scleral icterus . Neck is without jugular venous distension, thyromegaly, or carotid bruits. Lungs are clear to auscultation. Cardiac exam reveals irregular rate and Rhythm. Abdominal exam reveals normal bowel sounds, no masses, no organomegaly and no aortic enlargement. Extremities are nonedematous and both femoral and pedal pulses are normal. POLICY DIRECTOR: Alert and oriented 3. No focal weakness. - Constitutional Vitals: Temp Pulse Resp BP Pulse Ox 98.0 F 62 20 114/64 97 10/26/17 08:04 10/26/17 10:00 10/26/17 08:04 10/26/17 10:00 10/26/17 08:04 Plan Activity: no restrictions Weight Bearing Status: Full Weight Bearing Diet: low cholesterol, low salt, diabetic Additional Instructions: Follow at [facility] in 1-2 weeks Follow up with: [facility] [Provider Group] - 7 Days MARIKA MELCHOR MD [Staff Physician] - 11/01/17 2:35 pm PRIMARY CAREMD [Primary Care Provider] - 3-5 Days Forms: CardCath PCI D/C Instructions Prescriptions: Clopidogrel Bisulfate [Plavix] 75 mg PO DAILY #30 tablet
--- NOTE | 2017-10-26 12:28 | Progress Note ---
Assessment and Plan Assessment: NSTEMI type I - s/p PCI of distal RCA for in-stent restenosis Paroxysmal atrial fibrillation - anticoagulated with Eliquis CAD s/p PCI of RCA in 1999 HTN HLP DM H/o vertigo Plan: Currently stable cardiac status. Cont present cardiac regimen, including ASA 81 , plavix, eliquis, coreg, lisinopril, pravastatin. Pt may discharge home from cardiology standpoint. Follow up in our [place] office with Dr. Ibrahim on 11/01/2017 @ 2:45PM. The patient has been seen in conjunction with Dr. Reid who agrees with the assessment and plan of care. Subjective Date of service: 10/26/17 Principal diagnosis: NSTEMI Interval history: pt resting comfortably in bed, no current cardiac complaints. Objective Last Vital Signs Temp 98.0 F 10/26/17 08:04 Pulse 62 10/26/17 10:00 Resp 20 10/26/17 08:04 BP 114/64 10/26/17 10:00 Pulse Ox 97 10/26/17 08:04 - Physical Examination General: No Apparent Distress HEENT: Positive: PERRL, Normocephaly, Mucus Membranes Moist Neck: Positive: neck supple, trachea midline Cardiac: Positive: Reg Rate and Rhythm, S1/S2 Lungs: Positive: clear to auscultation Neuro: Positive: Grossly Intact, Cranial Nerve 2-12 Intact Abdomen: Positive: Soft. Negative: Tender Skin: Positive: Clear. Negative: Rash, Wound Musculoskeletal: No Fluid Collection, No Pain, Normal Range of Motion Extremities: Absent: edema - Labs and Meds Cardiac Enzymes 10/26/17 Range/Units 06:33 CK-MB (CK-2) < 1.0 (0.0-4.0) ng/mL CBC 10/26/17 Range/Units 06:33 WBC 7.3 (4.5-11.0) K/mm3 RBC 4.82 (3.65-5.03) M/mm3 Hgb 15.1 (11.8-15.2) gm/dl Hct 44.6 (35.5-45.6) % Plt Count 123 L (140-440) K/mm3 Lymph # 0.8 L (1.2-5.4) K/mm3 [place] # 1.0 H (0.0-0.8) K/mm3 Eos # 0.2 (0.0-0.4) K/mm3 Baso # 0.0 (0.0-0.1) K/mm3 Comprehensive Metabolic Panel 10/26/17 Range/Units 06:33 Sodium 141 (137-145) mmol/L Potassium 3.5 L (3.6-5.0) mmol/L Chloride 102.0 (98-107) mmol/L Carbon Dioxide 23 (22-30) mmol/L BUN 29 H (9-20) mg/dL Creatinine 1.6 H (0.8-1.5) mg/dL Glucose 109 H (75-100) mg/dL Calcium 8.8 (8.4-10.2) mg/dL - Imaging and Cardiology EKG: report reviewed (106 atrial fibrillation incomplete right bundle branch block and left anterior fascicular block) Cardiac cath: report reviewed (left Main large patent LAD proximal ectatic mid to distal patent diffuse disease with focal areas of 30-40% circumflex and AV groove ectatic with patent OM1 to 3 RCA large ectatic vessel distal in-stent restenosis 95% with normal LV function PCI of the distal RCA with a drug- eluting resolute 4.0 x 26 mm) - Telemetry EKG Rhythm: Sinus Rhythm
[2017-10-26 12:30] VITALS: BP 130/70
== END 2017-10-26 14:48 | disposition home or self-care (01) | DRG 246 ==
LOC: ED 10:56 → 4A 13:48
PROVIDERS: ADMIT Internal Medicine; ATTEND Internal Medicine
PROC: 5A09357 Assistance with Respiratory Ventilation, Less than 24 Consecutive Hours, Continuous Positive Airway Pressure (ICD-10-PCS; 2017-10-23)
PROC: 027034Z Dilation of Coronary Artery, One Artery with Drug-eluting Intraluminal Device, Percutaneous Approach (ICD-10-PCS; principal; 2017-10-25)
PROC: 4A023N7 Measurement of Cardiac Sampling and Pressure, Left Heart, Percutaneous Approach (ICD-10-PCS; 2017-10-25)
PROC: B2150ZZ Fluoroscopy of Left Heart using High Osmolar Contrast (ICD-10-PCS; 2017-10-25)
PROC: B2111ZZ Fluoroscopy of Multiple Coronary Arteries using Low Osmolar Contrast (ICD-10-PCS; 2017-10-25)
PROC: 5A09357 Assistance with Respiratory Ventilation, Less than 24 Consecutive Hours, Continuous Positive Airway Pressure (ICD-10-PCS; 2017-10-25)
DX: T82.855A Stenosis of coronary artery stent, initial encounter (principal); I21.4 Non-ST elevation (NSTEMI) myocardial infarction; I50.31 Acute diastolic (congestive) heart failure; I11.0 Hypertensive heart disease with heart failure; I48.0 Paroxysmal atrial fibrillation; E78.5 Hyperlipidemia, unspecified; K21.9 Gastro-esophageal reflux disease without esophagitis; E11.65 Type 2 diabetes mellitus with hyperglycemia; E55.9 Vitamin D deficiency, unspecified; I25.10 Atherosclerotic heart disease of native coronary artery without angina pectoris; Y83.8 Other surgical procedures as the cause of abnormal reaction of the patient, or of later complication, without mention of misadventure at the time of the procedure; Y92.89 Other specified places as the place of occurrence of the external cause; Z79.899 Other long term (current) drug therapy; Z79.84 Long term (current) use of oral hypoglycemic drugs
CPT/HCPCS: 36415; 71045; 80048; 80053; 80061; 80074; 80162; 81001; 82140; 82550; 82553; 82962; 83036; 83735; 83880; 84443; 84484; 85025; 85610; 85730; 92928; 93005; 93010; 93458; 94660; A9270-GY; C1725; C1769; C1874; C1887; C1894; C9600; J1644; J2250; J3010; J7030; J7040; Q9967

== ENCOUNTER 2020-11-03 18:20 | Inpatient (IN) | payer MEDICARE, OTHER ==
[2020-11-03 20:01] LABS: INR 1.12 (0.87-1.13)
[2020-11-03 20:02] LABS: Partial Thromboplastin Time 34.1 Sec. (24.2-36.6)
[2020-11-03 20:13] LABS: BUN/Creatinine Ratio 14; Blood Urea Nitrogen 17 mg/dL (9-20); Calcium 9.1 mg/dL (8.4-10.2); Hemolysis Index 5
[2020-11-03 20:19] LABS: Basophils % (Auto) 0.3 % (0.0-1.8); Eosinophils # (Auto) 0.2 K/mm3 (0.0-0.4); Hematocrit 45.9 % (35.5-45.6); Hemoglobin 15.8 gm/dl (11.8-15.2); Lymphocytes # (Auto) 1.9 K/mm3 (1.2-5.4); Lymphocytes % (Auto) 22.7 % (13.4-35.0); Mean Corpuscular HGB Conc 35 % (32-34); Mean Corpuscular Volume 92 fl (84-94); Monocytes % (Auto) 12.2 % (0.0-7.3); Platelet Count 119 K/mm3 (140-440); Red Blood Count 5.02 M/mm3 (3.65-5.03); Red Cell Distribution Width 13.3 % (13.2-15.2)
--- NOTE | 2020-11-03 20:32 | Cat Scan Report ---
CT head/brain wo con INDICATION / CLINICAL INFORMATION: 80 years Male; neuro deficits <6hrs or sx present upon awakening. TECHNIQUE: Routine CT head without contrast. All CT scans at this location are performed using CT dos e reduction for ALARA by means of automated exposure control. COMPARISON: 05/23/2017 FINDINGS: BRAIN / INTRACRANIAL CONTENTS: No acute hemorrhage, mass effect, midline shift, hydrocephalus, or acu te, large territorial infarct. Mild cerebral atrophy. There are mild areas of decreased attenuation in the white matter of the cerebral hemispheres. These are nonspecific findings and may be related to microangiopathy (hypertension, diabetes, atheroscleros is), given the patient's age. It might be difficult to evaluate for small areas of ischemia without d iffusion imaging by MRI. Mild pontine disease noted. CRANIOCERVICAL JUNCTION: No significant abnormality. ORBITS: No significant abnormality of visualized orbits. SINUSES / MASTOIDS: Visualized paranasal sinuses and mastoid air cells are essentially clear. ADDITIONAL FINDINGS: Tortuous vertebral basilar system seen-would question history of hypertension. No significant atherosclerotic disease appreciated. IMPRESSION: 1. No focal mass, hemorrhage, hydrocephalus, or acute, large territorial infarct. Signer Name: Antolin Underwood MD, III Signed: 11/03/2020 8:27 PM Workstation Name: [id number]
[2020-11-03] MEDS ORDERED: ZIPRASIDONE MESYLATE 20 MG VIAL IM ONE (21:50)
--- NOTE | 2020-11-03 22:36 | Emergency Department Report ---
ED General Adult HPI - General Chief complaint: Headache Stated complaint: REFERRED BY DOCTOR TO RULE OUT STROKE PUI?: No Time Seen by Provider: 11/03/20 22:19 Source: patient, family, RN notes reviewed, old records reviewed Mode of arrival: Ambulatory Limitations: No Limitations - History of Present Illness Initial comments: The patient was evaluated in the emergency department for symptoms described in the history of present illness. He/she was evaluated in the context of the global COVID-19 pandemic, which necessitated consideration that the patient might be at risk for infection with the virus that causes COVID-19. I nstitutional protocols and algorithms that pertain to the evaluation of patients at risk for COVID-19 are in a state of rapid change based on information released by regulatory bodies including the CDC and federal and state organizations. These policies and algorithms were followed during the patient's care in the emergency department. Please note that these policies, procedures and recommendations changed on a rapid basis. Cardiology: Dr. Mj Ibrahim Past medical history: A. 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 He presents to the emergency room with his daughter. He presents to the ER today with a complaint of his primary care dairy manager sent him to the emergency room to be ruled out for stroke versus TIA. Patient and daughter state that over the past few weeks he has been having episodes of intermittent confusion, and unsteady gait. Currently, the symptoms are not present. The patient reports she was admitted to [facility] last month, had a cardiac catheterization done last month, daughter believes 2 stents were deployed, and he was recently started on Lopressor and Imdur. Daughter attributes these medications this may be contributing to his overall symptomatology. The patient denies headache and loss of vision. He currently has no chest pain. Mild abdominal cramping. Positive dysuria. Positive bilateral lower extremity swelling. No Covid symptomatology. These episodes are intermittent, and do not have exacerbating relieving factors. To me, he denies headache at this time. He endorses muscular shoulder cramps at this time. -: days(s) Consistency: intermittent Improves with: none Worsens with: none - Related Data Home Medications Medication Instructions Recorded Confirmed Last Taken Cholecalciferol (Vitamin D3) 3,000 unit PO QDAY 10/28/14 10/24/17 08/08/17 [Vitamin D3] Omeprazole 20 mg PO QDAY 10/28/14 10/24/17 05/23/17 glipiZIDE [Glipizide ER] 2.5 mg PO QDAY 10/28/14 10/24/17 05/23/17 Chlorthalidone 50 mg PO DAILY 05/23/17 10/24/17 08/08/17 Pravastatin [Pravachol] 20 mg PO QHS 05/23/17 10/24/17 08/08/17 carvediloL [Coreg] 6.25 mg PO BID 05/23/17 10/24/17 05/23/17 hydrALAZINE [Apresoline TAB] 100 mg PO BID 05/23/17 10/24/17 08/08/17 lisinopriL [Zestril TAB] 40 mg PO QDAY 05/23/17 10/24/17 1 Day Ago ~08/08/17 Brimonidine/Timolol 0.2-0.5% 1 drops OP Q12H 10/24/17 10/25/17 10/22/17 [Combigan 0.2-0.5%] Latanoprost 0.005% 1 drop OP QPM 10/24/17 10/25/17 10/22/17 Previous Rx's Medication Instructions Recorded Last Taken Type Meclizine [Antivert] 25 mg PO Q8H PRN #60 tablet 10/29/14 05/23/17 Rx Apixaban [Eliquis] 5 mg PO Q12HR #60 tablet 08/10/17 Unknown Rx Clopidogrel Bisulfate [Plavix] 75 mg PO DAILY #30 tablet 10/26/17 Unknown Rx Allergies Allergy/AdvReac Type Severity Reaction Status Date / Time No Known Allergies Allergy Verified 10/28/14 04:14 ED Review of Systems ROS: Stated complaint: REFERRED BY DOCTOR TO RULE OUT STROKE Other details as noted in HPI Constitutional: denies: fever Eyes: denies: eye discharge, vision change ENT: denies: epistaxis Respiratory: denies: cough Cardiovascular: edema. denies: chest pain Gastrointestinal: denies: nausea, vomiting, hematemesis, melena, hematochezia Genitourinary: dysuria Musculoskeletal: myalgia Neurological: weakness, confusion, abnormal gait ED Past Medical Hx - Past Medical History Previous Medical History?: Yes Hx Hypertension: Yes Hx Heart Attack/AMI: Yes (1999) Hx Congestive Heart Failure: No Hx Diabetes: Yes Hx Deep Vein Thrombosis: No Hx Arthritis: No Hx Asthma: No Additional medical history: sleep apnea with CPAP, afib - Surgical History Past Surgical History?: Yes Hx Coronary Stent: Yes (X1) Hx Open Heart Surgery: No Hx Pacemaker: No Hx Internal Defibrillator: No Hx Cholecystectomy: No Hx Appendectomy: No Hx Breast Surgery: No Additional Surgical History: tonsilectomy - Social History Smoking Status: Never Smoker - Medications Home Medications: Home Medications Medication Instructions Recorded Confirmed Last Taken Type Cholecalciferol (Vitamin D3) 3,000 unit PO QDAY 10/28/14 10/24/17 08/08/17 History [Vitamin D3] Omeprazole 20 mg PO QDAY 10/28/14 10/24/17 05/23/17 History glipiZIDE [Glipizide ER] 2.5 mg PO QDAY 10/28/14 10/24/17 05/23/17 History Meclizine [Antivert] 25 mg PO Q8H PRN #60 tablet 10/29/14 10/24/17 05/23/17 Rx Chlorthalidone 50 mg PO DAILY 05/23/17 10/24/17 08/08/17 History Pravastatin [Pravachol] 20 mg PO QHS 05/23/17 10/24/17 08/08/17 History carvediloL [Coreg] 6.25 mg PO BID 05/23/17 10/24/17 05/23/17 History hydrALAZINE [Apresoline TAB] 100 mg PO BID 05/23/17 10/24/17 08/08/17 History lisinopriL [Zestril TAB] 40 mg PO QDAY 05/23/17 10/24/17 1 Day Ago History ~08/08/17 Apixaban [Eliquis] 5 mg PO Q12HR #60 tablet 08/10/17 10/24/17 Unknown Rx Brimonidine/Timolol 0.2-0.5% 1 drops OP Q12H 10/24/17 10/25/17 10/22/17 History [Combigan 0.2-0.5%] Latanoprost 0.005% 1 drop OP QPM 10/24/17 10/25/17 10/22/17 History Clopidogrel Bisulfate [Plavix] 75 mg PO DAILY #30 tablet 10/26/17 Unknown Rx ED Physical Exam - General Limitations: No Limitations General appearance: alert, in no apparent distress - Head Head exam: Present: atraumatic, normocephalic - Eye Eye exam: Present: normal appearance, PERRL, EOMI, other (Visual acuity intact to finger counting, color perception, reading at a close distance). Absent: nystagmus - ENT ENT exam: Present: normal exam, normal orophraynx, mucous membranes moist, normal external ear exam - Neck Neck exam: Present: normal inspection, full ROM. Absent: tenderness, meningismus - Respiratory Respiratory exam: Present: normal lung sounds bilaterally. Absent: respiratory distress, wheezes, rales, rhonchi, stridor, decreased breath sounds - Cardiovascular Cardiovascular Exam: Present: regular rate, normal rhythm, normal heart sounds. Absent: bradycardia, tachycardia, irregular rhythm, systolic murmur, diastolic murmur, rubs, gallop - GI/Abdominal GI/Abdominal exam: Present: soft. Absent: distended, tenderness, guarding, rebound, rigid, pulsatile mass - Rectal Rectal exam: Present: deferred - Extremities Exam Extremities exam: Present: normal inspection, full ROM, pedal edema (1+ edema in the bilateral lower extremities), other (2+ pulses noted in the bilateral upper and lower extremities. There is no palpable cord. negative Homans sign. Muscular compartments are soft. The pelvis is stable.). Absent: calf tenderness - Back Exam Back exam: Present: normal inspection, full ROM. Absent: tenderness, CVA tenderness (R), CVA tenderness (L), paraspinal tenderness, vertebral tenderness - Neurological Exam Neurological exam: Present: alert (There is no past-pointing. Unable to perform tandem gait), oriented X3, normal gait, other (No facial droop. Tongue midline. Extraocular movements intact bilaterally. Facial sensation intact to light touch in V1, V2, V3 distribution bilaterally. 5 and a 5 strength in 4 extremities. Sensation intact to light touch in 4 extremities.). Absent: motor sensory deficit - Psychiatric Psychiatric exam: Present: normal affect, normal mood - Skin Skin exam: Present: warm, dry, intact, normal color. Absent: rash ED Course Vital Signs 11/03/20 11/03/20 19:14 22:40 Temperature 98.8 F Pulse Rate 65 62 Respiratory 18 13 Rate Blood Pressure 206/97 Blood Pressure 205/91 [Left] O2 Sat by Pulse 96 96 Oximetry - Reevaluation(s) Reevaluation #1: 11/03/20 23:02 Differential diagnosis, including but not limited to: Dementia, TIA, hypertensive urgency, dependent edema Assessment and plan: 80-year-old gentleman, who is currently clinically sober, with a GCS of 15, NIH score of 0, symptoms present for days to weeks, not a TPA candidate at this time, examination not suggestive of large vessel occlusion, sent to the emergency room by his dairy manager to be evaluated for stroke versus TIA. Extensive discussion had with patient and daughter regarding recommendations. At the moment, does not require TPA, will give aspirin, hydralazine, and low- dose Lasix. Have requested neurology consultation, and he is currently being evaluated by our stroke neurologist, Dr. Atkinson. Given that he does not have neurologic symptoms at this time, would avoid permissive hypertension, and start with hydralazine, and low-dose Lasix. Multiple discussions were required with the patient and his daughter, because they were initially reluctant to be admitted to this hospital. Ultimately, after multiple discussions, they were amenable to admission and hospitalization. He is currently being evaluated by our stroke neurologist, Dr. Atkinson. Her recommendations are pending, but patient will be admitted to the medical service for TIA work-up and evaluation. I have discussed this plan of care with the patient and his daughter, who are agreeable to this plan of care. ED Medical Decision Making - Lab Data Result diagrams: 11/03/20 19:39 11/03/20 19:39 Vital Signs 11/03/20 11/03/20 19:14 22:40 Temperature 98.8 F Pulse Rate 65 62 Respiratory 18 13 Rate Blood Pressure 206/97 Blood Pressure 205/91 [Left] O2 Sat by Pulse 96 96 Oximetry Lab Results 11/03/20 11/03/20 11/03/20 Range/Units 19:39 19:39 19:39 WBC 8.2 (4.5-11.0) K/mm3 RBC 5.02 (3.65-5.03) M/mm3 Hgb 15.8 H (11.8-15.2) gm/dl Hct 45.9 H (35.5-45.6) % MCV 92 (84-94) fl MCH 32 (28-32) pg MCHC 35 H (32-34) % RDW 13.3 (13.2-15.2) % Plt Count 119 L (140-440) K/mm3 Lymph % (Auto) 22.7 (13.4-35.0) % [place] % (Auto) 12.2 H (0.0-7.3) % Eos % (Auto) 2.0 (0.0-4.3) % Baso % (Auto) 0.3 (0.0-1.8) % Lymph # (Auto) 1.9 (1.2-5.4) K/mm3 [place] # (Auto) 1.0 H (0.0-0.8) K/mm3 Eos # (Auto) 0.2 (0.0-0.4) K/mm3 Baso # (Auto) 0.0 (0.0-0.1) K/mm3 Seg Neutrophils % 62.8 (40.0-70.0) % Seg Neutrophils # 5.1 (1.8-7.7) K/mm3 PT 14.9 (12.2-14.9) Sec. INR 1.12 (0.87-1.13) APTT 34.1 (24.2-36.6) Sec. Thrombin Time (15.1-19.6) Sec. Sodium 141 (137-145) mmol/L Potassium 3.6 (3.6-5.0) mmol/L Chloride 103.0 (98-107) mmol/L Carbon Dioxide 28 (22-30) mmol/L Anion Gap 14 mmol/L BUN 17 (9-20) mg/dL Creatinine 1.2 (0.8-1.3) mg/dL Estimated GFR 58 ml/min BUN/Creatinine Ratio 14 % Glucose 117 H (75-100) mg/dL Calcium 9.1 (8.4-10.2) mg/dL Total Bilirubin (0.1-1.2) mg/dL Direct Bilirubin (0-0.2) mg/dL Indirect Bilirubin mg/dL AST (5-40) units/L ALT (7-56) units/L Alkaline Phosphatase (35-129) units/L Troponin T < 0.010 (0.00-0.029) ng/mL Total Protein (6.3-8.2) g/dL Albumin (3.9-5) g/dL Albumin/Globulin Ratio % 11/03/20 11/03/20 Range/Units 19:39 19:39 WBC (4.5-11.0) K/mm3 RBC (3.65-5.03) M/mm3 Hgb (11.8-15.2) gm/dl Hct (35.5-45.6) % MCV (84-94) fl MCH (28-32) pg MCHC (32-34) % RDW (13.2-15.2) % Plt Count (140-440) K/mm3 Lymph % (Auto) (13.4-35.0) % [place] % (Auto) (0.0-7.3) % Eos % (Auto) (0.0-4.3) % Baso % (Auto) (0.0-1.8) % Lymph # (Auto) (1.2-5.4) K/mm3 [place] # (Auto) (0.0-0.8) K/mm3 Eos # (Auto) (0.0-0.4) K/mm3 Baso # (Auto) (0.0-0.1) K/mm3 Seg Neutrophils % (40.0-70.0) % Seg Neutrophils # (1.8-7.7) K/mm3 PT (12.2-14.9) Sec. INR (0.87-1.13) APTT (24.2-36.6) Sec. Thrombin Time 16.7 (15.1-19.6) Sec. Sodium (137-145) mmol/L Potassium (3.6-5.0) mmol/L Chloride (98-107) mmol/L Carbon Dioxide (22-30) mmol/L Anion Gap mmol/L BUN (9-20) mg/dL Creatinine (0.8-1.3) mg/dL Estimated GFR ml/min BUN/Creatinine Ratio % Glucose (75-100) mg/dL Calcium (8.4-10.2) mg/dL Total Bilirubin 0.50 (0.1-1.2) mg/dL Direct Bilirubin < 0.2 (0-0.2) mg/dL Indirect Bilirubin 0.3 mg/dL AST 13 (5-40) units/L ALT 12 (7-56) units/L Alkaline Phosphatase 75 (35-129) units/L Troponin T (0.00-0.029) ng/mL Total Protein 6.8 (6.3-8.2) g/dL Albumin 3.7 L (3.9-5) g/dL Albumin/Globulin Ratio 1.2 % - EKG Data -: EKG Interpreted by Oh EKG shows normal: sinus rhythm - EKG Data 11/03/20 23:00 EKG interpreted at 19: 33 Sinus rhythm, bradycardia, rate 56 bpm. Normal P wave axis, left axis deviation, left anterior fascicular block, right bundle branch block. Left ventricular hypertrophy. QTC 4 3 3 ms. Abnormal EKG. No STEMI - Radiology Data Radiology results: pending, report reviewed, image reviewed [facility] [address] [id number] Cat Scan Report Signed Patient: MAHENDRA SIMPSON MR#: [id number] : 1940 Acct:[id number] Age/Sex: 80 / M ADM Date: 11/03/20 Loc: ED Attending Dr: Ordering Physician: GEOVANNI BRITT MD Date of Service: 11/03/20 Procedure(s): CT head/brain wo con Accession Number(s): [id number] cc: GEOVANNI BRITT MD CT head/brain wo con INDICATION / CLINICAL INFORMATION: 80 years Male; neuro deficits <6hrs or sx present upon awakening. TECHNIQUE: Routine CT head without contrast. All CT scans at this location are performed using CT dose reduction for ALARA by means of automated exposure control. COMPARISON: 05/23/2017 FINDINGS: BRAIN / INTRACRANIAL CONTENTS: No acute hemorrhage, mass effect, midline shift, hydrocephalus, or acute, large territorial infarct. Mild cerebral atrophy. There are mild areas of decreased attenuation in the white matter of the cerebral hemispheres. These are nonspecific findings and may be related to microangiopathy (hypertension, diabetes, atherosclerosis), given the patient's age. It might be difficult to evaluate for small areas of ischemia without diffusion imaging by MRI. Mild pontine disease noted. CRANIOCERVICAL JUNCTION: No significant abnormality. ORBITS: No significant abnormality of visualized orbits. SINUSES / MASTOIDS: Visualized paranasal sinuses and mastoid air cells are essentially clear. ADDITIONAL FINDINGS: Tortuous vertebral basilar system seen-would question history of hypertension. No significant atherosclerotic disease appreciated. IMPRESSION: 1. No focal mass, hemorrhage, hydrocephalus, or acute, large territorial infarct. Signer Name: Antolin Underwood MD, III Signed: 11/03/2020 8:27 PM Workstation Name: [id number] Transcribed By: HR Dictated By: Antolin Underwood MD Electronically Authenticated By: Antolin Underwood MD Signed Date/Time: 11/03/202026 DD/ 09 Critical care attestation.: If time is entered above; I have spent that time in minutes in the direct care of this critically ill patient, excluding procedure time. ED Disposition Clinical Impression: TIA (transient ischemic attack), Dependent edema, Hypertension Disposition: OP ADMIT IP TO THIS HOSP Is pt being admited?: Yes Does the pt Need Aspirin: No (ordered already) Condition: Good Instructions: Hypertension (ED)
[2020-11-03 22:51] LABS: Alanine Aminotransferase 12 units/L (7-56); Albumin 3.7 g/dL (3.9-5); Bilirubin,Direct < 0.2 mg/dL (0-0.2)
[2020-11-03] MEDS ORDERED: hydrALAZINE 20 MG/1 ML INJ IV ONE (22:56)
[2020-11-03] MEDS ORDERED: ASPIRIN 81 MG TAB CHEW PO ONE (22:56)
[2020-11-03] MEDS ORDERED: FUROSEMIDE 20 MG/2 ML INJ IV ONE (23:03)
--- NOTE | 2020-11-03 23:13 | Emergency Department Report ---
Blank Doc - Documentation Documentation: [facility] Consult Note # Demographics Consult Type: General Neurology Patient Location: Emergency Room First Name: Pawan Last Name: Ted Date of : 1940 Age: 80 Gender: Male Time of Initial Page (Eastern Time): 11/03/2020, 22:47 Time of Return Call (Eastern Time): 11/03/2020, 22:47 # HPI History: 70yo M was sent by PCP to eval for intermittent episodes of confusion and ataxia. normal exam except difficulty with tandem gait. pt reports he started to have balance issues for the last 6 months that has been increasing in severity. He reprots seeing his doctor today after a possible NM in October, not because of any recent issues or neurologic symptoms. family reprots that since having meds changed in October after a heart cath he has had this imbalance and dizziness. family also concerned about his cognition and memory. Last Known Normal: I have collected independent history specific to time last normal or last known well. We have collaborated with the provider and at this time, we have the most current timeline with the information that is available. # Exam SBP: 205 Mental Status: awake alert and oriented x 3 follows commands Language: normal speech Cranial Nerves: normal Motor: normal strength Sensory: normal sensation Cerebellar: normal cerebellar exam # PMH-FH-SH Past Medical History: A-fib hypertension Medications: NOAC # Data Head CT: no bleed per radiologist read # Assessment Impression: Altered Mental Status imbalance. possibly medication related. no symptosm of TIA at this time given ~1+ months of symptoms and non-specific symptoms. cognitive decline # Plan Target Blood Pressure: ok for normal BP Imaging: (urgency: routine): MRI Brain without contrast Therapy/Evaluation: NPO until swallow evaluation PT/OT evaluation speech/swallow consultation Medication: anticoagulation with NOAC start statin with goal of LDL < 70 Other: I have discussed my recommendations with the referring provider Additional Recommendations: eval for meds that may be contributing to his symptoms # Logistics Telemedicine: Interactive 2 way audio and visual telecommunication technology was utilized during this visit
[2020-11-03 23:43] LABS: Bilirubin,Urine NEG (Negative); Blood,Urine NEG (Negative); Color,Urine Straw (Yellow); Mucus,Urine FEW /HPF; Protein,Urine <15 mg/dL mg/dL (Negative); Urobilinogen,Urine < 2.0 mg/dL (<2.0); WBC,Urine < 1.0 /HPF (0.0-6.0)
[2020-11-03] MEDS ORDERED: MORPHINE 2 MG/1 ML INJ IV PRN (23:59)
[2020-11-03] MEDS ORDERED: MAGNESIUM HYDROXIDE (MOM) ORAL LIQD UDC PO PRN ×2 (23:59)
[2020-11-03] MEDS ORDERED: DEXTROSE 50% IN WATER (25GM) 50 ML SYRINGE IV PRN (23:59)
[2020-11-03] MEDS ORDERED: ACETAMINOPHEN 325 MG TAB PO PRN ×2 (23:59)
[2020-11-03] MEDS ORDERED: MORPHINE 4 MG/1 ML INJ IV PRN (23:59)
[2020-11-03] MEDS ORDERED: ONDANSETRON 4 MG/2 ML INJ IV PRN ×2 (23:59)
[2020-11-03] MEDS ORDERED: PROMETHAZINE 25 MG RECT SUPP PR PRN (23:59)
[2020-11-03] MEDS ORDERED: METOCLOPRAMIDE 10 MG TAB PO PRN (23:59)
[2020-11-04] MEDS ORDERED: hydrALAZINE 20 MG/1 ML INJ IV PRN (00:12)
--- NOTE | 2020-11-04 00:18 | History and Physical Report ---
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 Ibrahim. Over the past few weeks patient has been having intermittent episodes of confusion and unsteady gait. He was recently at [facility] about a month ago where he had cardiac catheterization and had 2 stents placed and was subsequently started on Lopressor and Imdur. According to daughter patient's symptoms seem to have started after commencing on these medications. Patient denies any headache or dizziness, no diaphoresis, no fever or chills, no chest pain or shortness of breath, no nausea or vomiting, no abdominal pain, no hematuria or dysuria, no bright red blood per rectum. He denies any sick contacts and no recent travel, denies any contact with any one with COVID-19. Patient has been fully vaccinated against COVID-19. Work-up in the emergency room today including CT scan of the head reveals no acute abnormalities. Patient was evaluated by the tele-neurologist and recommendation is to have patient worked up for possible TIA. Past History Past Medical History: CAD ([place] in 1999), diabetes, hypertension, other (sleep apnea with CPAP, afib) Past Surgical History: PTCA, Other (Tonsillectomy) Social history: no significant social history Family history: no significant family history Medications and Allergies Allergies Allergy/AdvReac Type Severity Reaction Status Date / Time No Known Allergies Allergy Verified 10/28/14 04:14 Home Medications Medication Instructions Recorded Confirmed Last Taken Type Omeprazole 20 mg PO QDAY 10/28/14 11/04/20 05/23/17 History glipiZIDE [Glipizide ER] 2.5 mg PO QDAY 10/28/14 11/04/20 05/23/17 History Meclizine [Antivert] 25 mg PO Q8H PRN #60 tablet 10/29/14 11/04/20 05/23/17 Rx Chlorthalidone 25 mg PO DAILY 05/23/17 11/04/20 08/08/17 History Pravastatin [Pravachol] 20 mg PO QHS 05/23/17 11/04/20 08/08/17 History hydrALAZINE [Apresoline TAB] 25 mg PO PRN PRN 05/23/17 11/04/20 08/08/17 History lisinopriL [Zestril TAB] 10 mg PO QDAY 05/23/17 11/04/20 1 Day Ago History ~08/08/17 Apixaban [Eliquis] 5 mg PO Q12HR #60 tablet 08/10/17 11/04/20 Unknown Rx Brimonidine/Timolol 0.2-0.5% 1 drops OP QHS 10/24/17 11/04/20 10/22/17 History [Combigan 0.2-0.5%] Latanoprost 0.005% 1 drop OP QPM 10/24/17 11/04/20 10/22/17 History Isosorbide Mononitrate [Isosorbide 60 mg PO QHS 11/04/20 11/04/20 Unknown History Mononitrate ER] Metoprolol Tartrate [Lopressor] 100 mg PO BID 11/04/20 11/04/20 Unknown History Oxybutynin [Ditropan] 5 mg PO QAM 11/04/20 11/04/20 Unknown History Potassium Chloride [K-Dur] 20 meq PO BID 11/04/20 11/04/20 Unknown History Active Meds: Active Medications Acetaminophen (Acetaminophen 325 Mg Tab) 650 mg PO Q4H PRN PRN Reason: Pain MILD(1-3)/Fever >100.5/JEREZ Acetaminophen (Acetaminophen 325 Mg Tab) 650 mg PO Q4H PRN PRN Reason: Pain, Mild (1-3) Aspirin (Aspirin 325 Mg Tab) 325 mg PO QDAY JEFF Atorvastatin Calcium (Atorvastatin 40 Mg Tab) 40 mg PO QHS JEFF Bisacodyl (Bisacodyl 10 Mg Rect Supp) 10 mg RI QDAY PRN PRN Reason: Constipation Dextrose (Dextrose 50% In Water (25gm) 50 Ml Syringe) 50 ml IV Q30MIN PRN; Protocol PRN Reason: Hypoglycemia Dextrose (Dextrose 50% In Water (25gm) 50 Ml Syringe) 50 ml IV Q30MIN PRN; Protocol PRN Reason: Hypoglycemia Hydralazine HCl (Hydralazine 20 Mg/1 Ml Inj) 10 mg IV Q4HR PRN PRN Reason: Blood Pressure Insulin Human Regular (Insulin Regular, Human 100 Units/1 Ml) 0 units SUB-Q ACHS JEFF; Protocol Magnesium Hydroxide (Magnesium Hydroxide (Mom) Oral Liqd Udc) 30 ml PO Q4H PRN PRN Reason: Constipation Magnesium Hydroxide (Magnesium Hydroxide (Mom) Oral Liqd Udc) 30 ml PO Q4H PRN PRN Reason: Constipation Metoclopramide HCl (Metoclopramide 10 Mg Tab) 10 mg PO Q6H PRN PRN Reason: Nausea And Vomiting Morphine Sulfate (Morphine 2 Mg/1 Ml Inj) 2 mg IV Q4H PRN PRN Reason: Pain, Moderate (4-6) Morphine Sulfate (Morphine 4 Mg/1 Ml Inj) 4 mg IV Q4H PRN PRN Reason: Pain , Severe (7-10) Ondansetron HCl (Ondansetron 4 Mg/2 Ml Inj) 4 mg IV Q8H PRN PRN Reason: Nausea And Vomiting Ondansetron HCl (Ondansetron 4 Mg/2 Ml Inj) 4 mg IV Q8H PRN PRN Reason: Nausea And Vomiting Promethazine HCl (Promethazine 25 Mg Rect Supp) 25 mg RI Q6H PRN PRN Reason: Nausea And Vomiting Sodium Chloride (Sodium Chloride 0.9% 10 Ml Flush Syringe) 10 ml IV BID JEFF Sodium Chloride (Sodium Chloride 0.9% 10 Ml Flush Syringe) 10 ml IV PRN PRN PRN Reason: LINE FLUSH Sodium Chloride (Sodium Chloride 0.9% 10 Ml Flush Syringe) 10 ml INJ PRN PRN PRN Reason: LINE FLUSH Review of Systems Constitutional: no fever, no chills Ears, nose, mouth and throat: no nasal congestion, no sore throat Cardiovascular: no chest pain, no palpitations Respiratory: no cough, no shortness of breath Gastrointestinal: no abdominal pain, no nausea, no vomiting, no diarrhea Genitourinary Male: no dysuria, no hematuria, no flank pain Musculoskeletal: no neck pain, no low back pain Integumentary: no rash, no pruritis Neurological: no headaches, no confusion Psychiatric: confusion, no anxiety, no depression Endocrine: no polyphagia, no polydipsia, no polyuria, no nocturia Exam - Constitutional Vitals: Temp Pulse Resp BP Pulse Ox 98.8 F 70 21 205/91 97 11/03/20 19:14 11/03/20 23:36 11/03/20 23:36 11/03/20 23:00 11/03/20 23:37 General appearance: Present: no acute distress, well-nourished - EENT Eyes: Present: PERRL, EOM intact. Absent: scleral icterus ENT: hearing intact, clear oral mucosa, dentition normal - Neck Neck: Present: supple, normal ROM - Respiratory Respiratory effort: normal Respiratory: bilateral: CTA - Cardiovascular Rhythm: regular Heart Sounds: Present: S1 & S2. Absent: gallop, systolic murmur, diastolic murmur, rub, click - Extremities Extremities: no ischemia, pulses intact, pulses symmetrical, normal temperature, normal color, Full ROM Extremity abnormal: edema (Trace bilateral ankle edema) Peripheral Pulses: within normal limits - Abdominal General gastrointestinal: Present: soft, non-tender, non-distended, normal bowel sounds. Absent: mass - Integumentary Integumentary: Present: clear, warm, dry. Absent: rash - Musculoskeletal Musculoskeletal: strength equal bilaterally - Psychiatric Psychiatric: appropriate mood/affect, intact judgment & insight, memory intact, cooperative - Neurologic Neurologic: CNII-XII intact, no focal deficits, moves all extremities HEART Score - HEART Score Troponin: Troponin T < 0.010 ng/mL (0.00-0.029) 11/03/20 19:39 Results - Labs CBC & Chem 7: 11/03/20 19:39 11/03/20 19:39 Labs: Abnormal lab results 11/03/20 11/03/20 11/03/20 Range/Units 19:39 19:39 19:39 Hgb 15.8 H (11.8-15.2) gm/dl Hct 45.9 H (35.5-45.6) % MCHC 35 H (32-34) % Plt Count 119 L (140-440) K/mm3 [place] % (Auto) 12.2 H (0.0-7.3) % [place] # (Auto) 1.0 H (0.0-0.8) K/mm3 Glucose 117 H (75-100) mg/dL Albumin 3.7 L (3.9-5) g/dL Assessment and Plan - Patient Problems (1) TIA (transient ischemic attack) Current Visit: Yes Status: Acute Plan to address problem: Patient commenced on daily aspirin and also placed on statin. We will schedule patient for carotid Doppler, echocardiogram and MRI of the brain. Consult will be placed to neurologist for evaluation. (2) Hypertensive urgency Current Visit: Yes Status: Acute Plan to address problem: We will resume routine home medications and monitor vital signs closely. (3) Diabetes mellitus Current Visit: Yes Status: Acute Plan to address problem: Patient placed on sliding scale insulin. We will monitor Accu-Cheks. (4) Atrial fibrillation Current Visit: No Status: Acute Qualifiers: Atrial fibrillation type: paroxysmal Qualified Code(s): I48.0 - Paroxysmal atrial fibrillation Plan to address problem: Rate is currently controlled. We will continue routine home medications. (5) DVT prophylaxis Current Visit: No Status: Acute Plan to address problem: Patient currently on anticoagulation with Eliquis. (6) Full code status Current Visit: Yes Status: Acute
[2020-11-04] MEDS ORDERED: MECLIZINE 25 MG TAB PO PRN (03:19)
[2020-11-04] MEDS: INSULIN REGULAR, HUMAN 100 UNITS/1 ML SUB-Q SCH ×4 (07:29→22:25)
--- NOTE | 2020-11-04 08:47 | Consultation ---
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 Over the past few weeks patient has been having intermittent episodes of confusion and unsteady gait. He was recently at [facility] about a month ago where he had cardiac catheterization and had 2 stents placed and was subsequently started on Lopressor and Imdur. According to daughter patient's symptoms seem to have started after commencing on these medications. Patient denies any headache or dizziness, no diaphoresis, no fever or chills, no chest pain or shortness of breath, no nausea or vomiting, no abdominal pain, no hematuria or dysuria, no bright red blood per rectum. He denies any sick contacts and no recent travel, denies any contact with any one with COVID-19. Patient has been fully vaccinated against COVID-19. Work-up in the emergency room today including CT scan of the head reveals no acute abnormalities. pt. had BP#167/107 had MRI today he is agitated and is difficult to evaluate after MRI was given 2 mg ativan move all extremities Past History Past Medical History: CAD ([place] in 1999), diabetes, hypertension, other (sleep apnea with CPAP, afib) Past Surgical History: PTCA, Other (Tonsillectomy) Social history: no significant social history Family history: no significant family history Medications and Allergies Allergies Allergy/AdvReac Type Severity Reaction Status Date / Time No Known Allergies Allergy Verified 10/28/14 04:14 Home Medications Medication Instructions Recorded Confirmed Last Taken Type Omeprazole 20 mg PO QDAY 10/28/14 11/04/20 05/23/17 History glipiZIDE [Glipizide ER] 2.5 mg PO QDAY 10/28/14 11/04/20 05/23/17 History Meclizine [Antivert] 25 mg PO Q8H PRN #60 tablet 10/29/14 11/04/20 05/23/17 Rx Chlorthalidone 25 mg PO DAILY 0211/04/20 08/08/17 History Pravastatin [Pravachol] 20 mg PO QHS 05/23/17 11/04/20 08/08/17 History hydrALAZINE [Apresoline TAB] 25 mg PO PRN PRN 05/23/17 11/04/20 08/08/17 History lisinopriL [Zestril TAB] 10 mg PO QDAY 05/23/17 11/04/20 1 Day Ago History ~08/08/17 Apixaban [Eliquis] 5 mg PO Q12HR #60 tablet 08/10/17 11/04/20 Unknown Rx Brimonidine/Timolol 0.2-0.5% 1 drops OP QHS 10/24/17 11/04/20 10/22/17 History [Combigan 0.2-0.5%] Latanoprost 0.005% 1 drop OP QPM 10/24/17 11/04/20 10/22/17 History Isosorbide Mononitrate [Isosorbide 60 mg PO QHS 11/04/20 11/04/20 Unknown History Mononitrate ER] Metoprolol Tartrate [Lopressor] 100 mg PO BID 11/04/20 11/04/20 Unknown History Oxybutynin [Ditropan] 5 mg PO QAM 11/04/20 11/04/20 Unknown History Potassium Chloride [K-Dur] 20 meq PO BID 11/04/20 11/04/20 Unknown History Active Meds: Active Medications Acetaminophen (Acetaminophen 325 Mg Tab) 650 mg PO Q4H PRN PRN Reason: Pain MILD(1-3)/Fever >100.5/JEREZ Acetaminophen (Acetaminophen 325 Mg Tab) 650 mg PO Q4H PRN PRN Reason: Pain, Mild (1-3) Aspirin (Aspirin 325 Mg Tab) 325 mg PO QDAY JEFF Atorvastatin Calcium (Atorvastatin 40 Mg Tab) 40 mg PO QHS JEFF Bisacodyl (Bisacodyl 10 Mg Rect Supp) 10 mg [place] QDAY PRN PRN Reason: Constipation Dextrose (Dextrose 50% In Water (25gm) 50 Ml Syringe) 50 ml IV Q30MIN PRN; Protocol PRN Reason: Hypoglycemia Dextrose (Dextrose 50% In Water (25gm) 50 Ml Syringe) 50 ml IV Q30MIN PRN; Protocol PRN Reason: Hypoglycemia Hydralazine HCl (Hydralazine 20 Mg/1 Ml Inj) 10 mg IV Q4HR PRN PRN Reason: Blood Pressure Insulin Human Regular (Insulin Regular, Human 100 Units/1 Ml) 0 units SUB-Q ACHS JEFF; Protocol Magnesium Hydroxide (Magnesium Hydroxide (Mom) Oral Liqd Udc) 30 ml PO Q4H PRN PRN Reason: Constipation Magnesium Hydroxide (Magnesium Hydroxide (Mom) Oral Liqd Udc) 30 ml PO Q4H PRN PRN Reason: Constipation Metoclopramide HCl (Metoclopramide 10 Mg Tab) 10 mg PO Q6H PRN PRN Reason: Nausea And Vomiting Morphine Sulfate (Morphine 2 Mg/1 Ml Inj) 2 mg IV Q4H PRN PRN Reason: Pain, Moderate (4-6) Morphine Sulfate (Morphine 4 Mg/1 Ml Inj) 4 mg IV Q4H PRN PRN Reason: Pain , Severe (7-10) Ondansetron HCl (Ondansetron 4 Mg/2 Ml Inj) 4 mg IV Q8H PRN PRN Reason: Nausea And Vomiting Ondansetron HCl (Ondansetron 4 Mg/2 Ml Inj) 4 mg IV Q8H PRN PRN Reason: Nausea And Vomiting Promethazine HCl (Promethazine 25 Mg Rect Supp) 25 mg [place] Q6H PRN PRN Reason: Nausea And Vomiting Sodium Chloride (Sodium Chloride 0.9% 10 Ml Flush Syringe) 10 ml IV BID JEFF Sodium Chloride (Sodium Chloride 0.9% 10 Ml Flush Syringe) 10 ml IV PRN PRN PRN Reason: LINE FLUSH Sodium Chloride (Sodium Chloride 0.9% 10 Ml Flush Syringe) 10 ml INJ PRN PRN PRN Reason: LINE FLUSH Review of Systems Constitutional: no fever, no chills Ears, nose, mouth and throat: no nasal congestion, no sore throat Cardiovascular: no chest pain, no palpitations Respiratory: no cough, no shortness of breath Gastrointestinal: no abdominal pain, no nausea, no vomiting, no diarrhea Genitourinary Male: no dysuria, no hematuria, no flank pain Musculoskeletal: no neck pain, no low back pain Integumentary: no rash, no pruritis Neurological: no headaches, no confusion Psychiatric: confusion, no anxiety, no depression Endocrine: no polyphagia, no polydipsia, no polyuria, no nocturia Past History Past Medical History: CAD ([place] in 1999), diabetes, hypertension, other (sleep apnea with CPAP, afib) Past Surgical History: PTCA, Other (Tonsillectomy) Social history: no significant social history Family history: no significant family history Medications and Allergies Allergies Allergy/AdvReac Type Severity Reaction Status Date / Time No Known Allergies Allergy Verified 10/28/14 04:14 Home Medications Medication Instructions Recorded Confirmed Last Taken Type Omeprazole 20 mg PO QDAY 10/28/14 11/04/20 05/23/17 History glipiZIDE [Glipizide ER] 2.5 mg PO QDAY 10/28/14 11/04/20 05/23/17 History Meclizine [Antivert] 25 mg PO Q8H PRN #60 tablet 10/29/14 11/04/20 05/23/17 Rx Chlorthalidone 25 mg PO DAILY 05/23/17 11/04/20 08/08/17 History Pravastatin [Pravachol] 20 mg PO QHS 05/23/17 11/04/20 08/08/17 History hydrALAZINE [Apresoline TAB] 25 mg PO PRN PRN 05/23/17 11/04/20 08/08/17 History lisinopriL [Zestril TAB] 10 mg PO QDAY 05/23/17 11/04/20 1 Day Ago History ~08/08/17 Apixaban [Eliquis] 5 mg PO Q12HR #60 tablet 08/10/17 11/04/20 Unknown Rx Brimonidine/Timolol 0.2-0.5% 1 drops OP QHS 10/24/17 11/04/20 10/22/17 History [Combigan 0.2-0.5%] Latanoprost 0.005% 1 drop OP QPM 10/24/17 11/04/20 10/22/17 History Isosorbide Mononitrate [Isosorbide 60 mg PO QHS 11/04/20 11/04/20 Unknown History Mononitrate ER] Metoprolol Tartrate [Lopressor] 100 mg PO BID 11/04/20 11/04/20 Unknown History Oxybutynin [Ditropan] 5 mg PO QAM 11/04/20 11/04/20 Unknown History Potassium Chloride [K-Dur] 20 meq PO BID 11/04/20 11/04/20 Unknown History Active Meds: Active Medications Acetaminophen (Acetaminophen 325 Mg Tab) 650 mg PO Q4H PRN PRN Reason: Pain MILD(1-3)/Fever >100.5/JEREZ Apixaban (Apixaban 5 Mg Tab) 5 mg PO Q12HR [facility] Aspirin (Aspirin 325 Mg Tab) 325 mg PO QDAY JEFF Bisacodyl (Bisacodyl 10 Mg Rect Supp) 10 mg [place] QDAY PRN PRN Reason: Constipation Brimonidine/Timolol (Combigan 0.2-0.5% Ophth Soln) 1 drops OU QHS JEFF Dextrose (Dextrose 50% In Water (25gm) 50 Ml Syringe) 50 ml IV Q30MIN PRN; Protocol PRN Reason: Hypoglycemia Hydralazine HCl (Hydralazine 20 Mg/1 Ml Inj) 10 mg IV Q4HR PRN PRN Reason: Blood Pressure Insulin Human Regular (Insulin Regular, Human 100 Units/1 Ml) 0 units SUB-Q ACHS [facility]; Protocol Last Admin: 11/04/20 07:29 Dose: Not Given Documented by: Isosorbide Mononitrate (Isosorbide Mononitrate Er 60 Mg Tab) 60 mg PO QHS [facility] Latanoprost (Latanoprost 0.005% Ophth Soln 2.5 Ml) 1 drops OU QPM JEFF Lisinopril (Lisinopril 10 Mg Tab) 10 mg PO QDAY [facility] Magnesium Hydroxide (Magnesium Hydroxide (Mom) Oral Liqd Udc) 30 ml PO Q4H PRN PRN Reason: Constipation Meclizine HCl (Meclizine 25 Mg Tab) 25 mg PO Q8H PRN PRN Reason: Vertigo Metoclopramide HCl (Metoclopramide 10 Mg Tab) 10 mg PO Q6H PRN PRN Reason: Nausea And Vomiting Metoprolol Tartrate (Metoprolol Tartrate 100 Mg Tab) 100 mg PO BID [facility] Morphine Sulfate (Morphine 2 Mg/1 Ml Inj) 2 mg IV Q4H PRN PRN Reason: Pain, Moderate (4-6) Morphine Sulfate (Morphine 4 Mg/1 Ml Inj) 4 mg IV Q4H PRN PRN Reason: Pain , Severe (7-10) Ondansetron HCl (Ondansetron 4 Mg/2 Ml Inj) 4 mg IV Q8H PRN PRN Reason: Nausea And Vomiting Oxybutynin Chloride (Oxybutynin 5 Mg Tab) 5 mg PO QAM JEFF Pantoprazole Sodium (Pantoprazole 20 Mg Tab) 20 mg PO QDAY JEFF Potassium Chloride (Potassium Chloride Er 20 Meq Tab) 20 meq PO BID JEFF Pravastatin Sodium (Pravastatin 20 Mg Tab) 20 mg PO QHS JEFF Promethazine HCl (Promethazine 25 Mg Rect Supp) 25 mg [place] Q6H PRN PRN Reason: Nausea And Vomiting Sodium Chloride (Sodium Chloride 0.9% 10 Ml Flush Syringe) 10 ml IV BID JEFF Sodium Chloride (Sodium Chloride 0.9% 10 Ml Flush Syringe) 10 ml IV PRN PRN PRN Reason: LINE FLUSH Review of Systems ROS unobtainable: due to mental status Physical Examination - Vital Signs Vital Signs: Vital Signs Temp Pulse Resp BP Pulse Ox 98.8 F 65 18 206/97 96 11/03/20 19:14 11/03/20 19:14 11/03/20 19:14 11/03/20 19:14 11/03/20 19:14 - Constitutional General appearance: other (agitated not follow command ) - EENT EENT: Present: PERRL, mucous membranes moist - Respiratory Respiratory: Present: chest non-tender, lungs clear, rhonchi - Cardiovascular Cardiovascular: Present: other (AF ) Extremities: Present: no peripheral edema bilatateraly, no clubbing, cyanosis - Gastrointestinal Gastrointestinal: Present: normoactive bowel sounds - Integumentary Integumentary: Present: normal - Neurologic Cranial nerve examination: PERRL, EOMI, intact Speech examination: other (difficult to evaluate he is agitated not following command ) Detailed motor examination: grossly full strength in Reflex and gait examination: other (difficult to assess gait due to agitation.) Results - Laboratory Findings CBC and BMP: 11/03/20 19:39 11/03/20 19:39 Abnormal Lab Findings: Abnormal Labs 11/03/20 11/03/20 11/03/20 19:39 19:39 19:39 Hgb 15.8 H Hct 45.9 H MCHC 35 H Plt Count 119 L Jack % (Auto) 12.2 H Jack # (Auto) 1.0 H Glucose 117 H POC Glucose Albumin 3.7 L 11/04/20 07:28 Hgb Hct MCHC Plt Count Jack % (Auto) Jack # (Auto) Glucose POC Glucose 144 H Albumin Assessment and Plan Assessment and Plan # Agitation in ER with elevated BP -r/o press syndrom -Seizure can not be excluded -Patient commenced on daily aspirin and also placed on statin. - carotid Doppler is pending - echocardiogram is pending - MRI of the brain is unremarkable -EEG is pending -? UDS R/O PRESS # Hypertensive urgency -We will resume routine home medications and monitor vital signs closely. # Diabetes mellitus -Patient placed on sliding scale insulin. We will monitor Accu-Cheks. # Atrial fibrillation -Rate is currently controlled. We will continue routine home medications. # DVT prophylaxis -Patient currently on anticoagulation with Eliquis. # Full code status Current Visit: Yes Status: Acute
[2020-11-04] MEDS ORDERED: NON-FORMULARY EACH (Apixaban 5 MG Tablet) PO SCH (10:00)
[2020-11-04] MEDS ORDERED: NON-FORMULARY EACH (Omeprazole [Omeprazole] 20 MG Capsule.Dr) PO SCH (10:00)
[2020-11-04] MEDS ORDERED: LORazepam 2 MG/ML VIAL IV ONE (10:25)
[2020-11-04] MEDS: ASPIRIN 325 MG TAB PO SCH (10:39)
[2020-11-04] MEDS: OXYBUTYNIN 5 MG TAB PO SCH (10:40)
[2020-11-04] MEDS: POTASSIUM CHLORIDE ER 20 MEQ TAB PO SCH ×2 (10:40→22:24)
[2020-11-04] MEDS: APIXABAN 5 MG TAB PO SCH ×2 (10:40→22:24)
[2020-11-04] MEDS: LISINOPRIL 10 MG TAB PO SCH (10:41)
[2020-11-04] MEDS: PANTOPRAZOLE 20 MG TAB PO SCH (10:41)
--- NOTE | 2020-11-04 13:32 | Magnetic Resonance Report ---
MRI BRAIN 11/04/2020 INDICATION / CLINICAL INFORMATION: stroke. Neurologic deficits TECHNIQUE: Multiplanar, multisequence MR images of the brain were obtained. COMPARISON: CT brain 11/03/2020 FINDINGS: BRAIN / INTRACRANIAL CONTENTS: Unenhanced MR images of the brain demonstrate no evidence of acute abn ormality. Ventricles and sulci are prominent in size, consistent with age-related atrophic change. Minimal personal banking representative saul white matter T2 weighted hyperintensities are present. There is no evidence of acute ischemic injury, hemorrhage, or mass. There are no abnormal extra-axial fluid collections. EXTRACRANIAL: Unremarkable CRANIOCERVICAL JUNCTION: No significant abnormality. VASCULAR FLOW-VOIDS: No significant abnormality. IMPRESSION: No acute abnormality. Age-related changes. Signer Name: Ted Manjarrez MD Signed: 11/04/2020 1:27 PM Workstation Name: [id number]
--- NOTE | 2020-11-04 14:01 | Vascular Lab Report ---
DUPLEX DOPPLER ULTRASOUND CAROTID, BILATERAL INDICATION / CLINICAL INFORMATION: stroke. COMPARISON: None available. FINDINGS: RIGHT CAROTID: Minimal interval hyperplasia is identified in the distal CCA, carotid bulb and proxima l ICA - PLAQUE ESTIMATE (%): < 50% - CCA velocity: 53 cm/sec. - ICA peak systolic velocity: 52 cm/sec. - ICA/CCA PSV Ratio: 1.0 Right Vertebral Artery: Antegrade flow. LEFT CAROTID: Mild intimal hyperplasia is identified in the distal CCA, carotid bulb and proximal ICA - PLAQUE ESTIMATE (%): < 50% - CCA velocity: 60 cm/sec. - ICA peak systolic velocity: 64 cm/sec. - ICA/CCA PSV Ratio: 1.1 Left Vertebral Artery: Antegrade flow. IMPRESSION: 1. Right Internal Carotid Artery: Less than 50% diameter stenosis. 2. Left Internal Carotid Artery: Less than 50% diameter stenosis. Velocity criteria are extrapolated from diameter data as defined by the Society of Radiologists in Ul trasound Consensus Conference, Radiology 2003; 229;340-346. NO STENOSIS (NORMAL) - Plaque = none; ICA PSV < 125 cm/sec; ICA/CCA PSV Ratio < 2.0 <50% STENOSIS - Plaque < 50%; ICA PSV < 125 cm/sec; ICA/CCA PSV Ratio < 2.0 50-69% STENOSIS - Plaque > 50%; ICA PSV = 125-230 cm/sec; ICA/CCA PSV Ratio = 2.0-4.0 >70% BUT <100% STENOSIS - Plaque > 50%; ICA PSV > 230 cm/sec; ICA/CCA PSV Ratio > 4.0 NEAR OCCLUSION - Plaque = visible lumen; ICA PSV = high/low/none; ICA/CCA PSV Ratio = variable TOTAL OCCLUSION - Plaque = no lumen; ICA PSV = none; ICA/CCA PSV Ratio = N/A Signer Name: Ramy Lane Jr, MD Signed: 11/04/2020 1:56 PM Workstation Name: [id number]
[2020-11-04] MEDS: METOPROLOL TARTRATE 100 MG TAB PO SCH ×2 (14:24→22:23)
--- NOTE | 2020-11-04 18:08 | Electrocardiograph Report ---
[facility] Test Date: 2020-11-03 Test Time: 19:33:47 Pat Name: MAHENDRA SIMPSON Department: Room: A467 Gender: M Data Base Design Analyst: DEAN : 1940 Requested By: SARINA EVERETT Order Number: [id number] Reading MD: Kylah Lewis Measurements Intervals [place] Rate: 56 P: 38 AR: 233 QRS: -70 QRSD: 154 T: -25 QT: 450 QTc: 433 Interpretive Statements Sinus bradycardia Prolonged AR interval RBBB and LAFB No previous ECG available for comparison Electronically Signed On 11-04-2020 18:08:37 EDT by Kylah Lewis
[2020-11-04] MEDS: LATANOPROST 0.005% OPHTH SOLN 2.5 ML OU SCH (22:23)
[2020-11-04] MEDS: PRAVASTATIN 20 MG TAB PO SCH (22:24)
[2020-11-04] MEDS: COMBIGAN 0.2-0.5% OPHTH SOLN OU SCH (22:38)
[2020-11-04 23:26] LABS: Amphetamine Screen,Urine PRESUMPTIVE NEGATIVE; Benzodiazepines Screen,Urine PRESUMPTIVE NEGATIVE; Cannabinoid Screen,Urine PRESUMPTIVE NEGATIVE; Cocaine Screen,Urine PRESUMPTIVE NEGATIVE; Methadone Screen,Urine PRESUMPTIVE NEGATIVE; Opiate Screen,Urine PRESUMPTIVE NEGATIVE
[2020-11-05 05:43] LABS: Eosinophils % (Auto) 0.3 % (0.0-4.3); Monocytes # (Auto) 1.1 K/mm3 (0.0-0.8); Monocytes % (Auto) 8.4 % (0.0-7.3)
[2020-11-05 05:59] LABS: Basophils % (Auto) 0.1 % (0.0-1.8); Hematocrit 51.1 % (35.5-45.6); Hemoglobin 17.6 gm/dl (11.8-15.2); Lymphocytes # (Auto) 1.6 K/mm3 (1.2-5.4); Lymphocytes % (Auto) 11.7 % (13.4-35.0); Mean Corpuscular HGB Conc 35 % (32-34); Mean Corpuscular Volume 92 fl (84-94); Platelet Count 150 K/mm3 (140-440); Red Blood Count 5.58 M/mm3 (3.65-5.03); Red Cell Distribution Width 13.6 % (13.2-15.2)
[2020-11-05 06:11] LABS: Calcium 10.1 mg/dL (8.4-10.2)
[2020-11-05 06:18] LABS: INR 1.51 (0.87-1.13)
[2020-11-05] MEDS: ASPIRIN 325 MG TAB PO SCH (09:17)
[2020-11-05] MEDS: PANTOPRAZOLE 20 MG TAB PO SCH (09:17)
[2020-11-05] MEDS: APIXABAN 5 MG TAB PO SCH ×2 (09:17→21:34)
[2020-11-05] MEDS: OXYBUTYNIN 5 MG TAB PO SCH (09:17)
[2020-11-05] MEDS: POTASSIUM CHLORIDE ER 20 MEQ TAB PO SCH ×2 (09:17→21:33)
[2020-11-05] MEDS: METOPROLOL TARTRATE 100 MG TAB PO SCH ×2 (09:22→21:33)
[2020-11-05] MEDS: LISINOPRIL 10 MG TAB PO SCH (09:23)
[2020-11-05] MEDS: INSULIN REGULAR, HUMAN 100 UNITS/1 ML SUB-Q SCH ×4 (09:23→21:34)
--- NOTE | 2020-11-05 09:24 | Progress Note ---
Assessment and Plan Assessment and Plan - Patient Problems (1) TIA (transient ischemic attack) Current Visit: Yes Status: Acute Plan to address problem: Patient commenced on daily aspirin and also placed on statin. We will schedule patient for carotid Doppler, echocardiogram and MRI of the brain. Consult will be placed to neurologist for evaluation. (2) Hypertensive urgency Current Visit: Yes Status: Acute Plan to address problem: We will resume routine home medications and monitor vital signs closely. (3) Diabetes mellitus Current Visit: Yes Status: Acute Plan to address problem: Patient placed on sliding scale insulin. We will monitor Accu-Cheks. (4) Atrial fibrillation Current Visit: No Status: Acute Qualifiers: Atrial fibrillation type: paroxysmal Qualified Code(s): I48.0 - Paroxysmal atrial fibrillation Plan to address problem: Rate is currently controlled. We will continue routine home medications. (5) DVT prophylaxis Current Visit: No Status: Acute Plan to address problem: Patient currently on anticoagulation with Eliquis. (6) Full code status Current Visit: Yes Status: Acute Subjective Date of service: 11/04/20 Interval history: 80-year-old white male with known history of CHF, hypertension, hyperlipidemia, diabetes mellitus, coronary artery disease with stent placement in the past, atrial fibrillation was accompanied to the emergency room today by her daughter after being encouraged to report here by his bus transportation manager Dr. Ibrahim. Over the past few weeks patient has been having intermittent episodes of confusion and unsteady gait. He was recently at [facility] about a month ago where he had cardiac catheterization and had 2 stents placed and was subsequently started on Lopressor and Imdur. According to daughter patient's symptoms seem to have started after commencing on these medications. Patient denies any headache or dizziness, no diaphoresis, no fever or chills, no chest pain or shortness of breath, no nausea or vomiting, no abdominal pain, no hematuria or dysuria, no bright red blood per rectum. He denies any sick contacts and no recent travel, denies any contact with any one with COVID-19. Patient has been fully vaccinated against COVID-19. Work-up in the emergency room today including CT scan of the head reveals no acute abnormalities. Patient was evaluated by the tele-neurologist and recommendation is to have patient worked up for possible TIA. Objective - Constitutional Vitals: Vital Signs - 12hr 11/04/20 11/04/2011/04/21 21:33 22:23 22:24 Temperature 97.7 F Pulse Rate 80 78 78 Pulse Rate [ From Monitor] Respiratory 20 Rate Blood Pressure 162/73 162/73 162/73 O2 Sat by Pulse 94 Oximetry 11/05/20 11/05/20 11/05/20 01:00 02:35 06:12 Temperature Pulse Rate 91 H Pulse Rate [ 82 From Monitor] Respiratory 20 Rate Blood Pressure 104/58 O2 Sat by Pulse 98 Oximetry 11/05/20 11/05/20 06:25 08:19 Temperature 98.2 F 97.6 F Pulse Rate 47 L Pulse Rate [ From Monitor] Respiratory 20 18 Rate Blood Pressure 75/52 O2 Sat by Pulse 94 Oximetry - Labs CBC & Chem 7: 11/05/20 05:27 11/05/20 05:27 Labs: Abnormal lab results 11/04/20 11/04/20 11/05/20 Range/Units 15:48 22:02 05:27 WBC 13.8 H (4.5-11.0) K/mm3 RBC 5.58 H (3.65-5.03) M/mm3 Hgb 17.6 H (11.8-15.2) gm/dl Hct 51.1 H (35.5-45.6) % MCHC 35 H (32-34) % Lymph % (Auto) 11.7 L (13.4-35.0) % [place] % (Auto) 8.4 H (0.0-7.3) % [place] # (Auto) 1.1 H (0.0-0.8) K/mm3 Seg Neutrophils % 79.0 H (40.0-70.0) % Seg Neutrophils # 10.5 H (1.8-7.7) K/mm3 PT (12.2-14.9) Sec. INR (0.87-1.13) BUN (9-20) mg/dL Creatinine (0.8-1.3) mg/dL Glucose (75-100) mg/dL POC Glucose 159 H 157 H (70-105) mg/dL Triglycerides (2-149) mg/dL HDL Cholesterol (40-59) mg/dL 11/05/20 11/05/20 11/05/20 Range/Units 05:27 05:27 08:16 WBC (4.5-11.0) K/mm3 RBC (3.65-5.03) M/mm3 Hgb (11.8-15.2) gm/dl Hct (35.5-45.6) % MCHC (32-34) % Lymph % (Auto) (13.4-35.0) % [place] % (Auto) (0.0-7.3) % [place] # (Auto) (0.0-0.8) K/mm3 Seg Neutrophils % (40.0-70.0) % Seg Neutrophils # (1.8-7.7) K/mm3 PT 18.7 H (12.2-14.9) Sec. INR 1.51 H (0.87-1.13) BUN 23 H (9-20) mg/dL Creatinine 1.9 H D (0.8-1.3) mg/dL Glucose 174 H (75-100) mg/dL POC Glucose 185 H (70-105) mg/dL Triglycerides 159 H (2-149) mg/dL HDL Cholesterol 29 L (40-59) mg/dL HEART Score - HEART Score Troponin: Troponin T < 0.010 ng/mL (0.00-0.029) 11/03/20 19:39
[2020-11-05 11:32] LABS: Chol/HDL Ratio 3.62 %
--- NOTE | 2020-11-05 12:46 | Progress Note ---
Assessment and Plan Assessment and Plan # Agitation in ER with elevated BP -r/o press syndrom MRI brain is unremarkable -Seizure can not be excluded--EEG today -Possible underlying mild dementia -UDS is unremarkable -Patient commenced on daily aspirin and also placed on statin. - carotid Doppler is < 50% bilateral - echocardiogram is with EF#50-55% # Hypertensive urgency -We will resume routine home medications and monitor vital signs closely. # Diabetes mellitus -Patient placed on sliding scale insulin. We will monitor Accu-Cheks. # Atrial fibrillation -Rate is currently controlled. -We will continue routine home medications. # DVT prophylaxis -Patient currently on anticoagulation with Eliquis. # Full code status Current Visit: Yes Status: Acute Subjective Date of service: 11/05/20 Principal diagnosis: confusion resolved Interval history: doing well today , alert interactive oriented to place and age MRI brain is unremarkable Objective - Vital Sign Vital Signs - 12hr 11/05/20 11/05/20 11/05/20 01:00 02:35 06:12 Temperature Pulse Rate 91 H Pulse Rate [ 82 From Monitor] Respiratory 20 Rate Blood Pressure 104/58 O2 Sat by Pulse 98 Oximetry 11/05/20 11/05/20 11/05/20 06:25 08:19 09:22 Temperature 98.2 F 97.6 F Pulse Rate 47 L 115 H Pulse Rate [ From Monitor] Respiratory 20 18 Rate Blood Pressure 75/52 94/59 O2 Sat by Pulse 94 Oximetry 11/05/20 09:23 Temperature Pulse Rate 97 H Pulse Rate [ From Monitor] Respiratory Rate Blood Pressure 94/59 O2 Sat by Pulse Oximetry - General Apperance Constitutional: comfortable - EENT EENT: PERRL, mucous membranes moist - Respiratory Respiratory: chest non-tender, lungs clear, rhonchi - Cardiovascular Cardiovascular: other (AF) Extremities: no peripheral edema bilat, no clubbing, cyanosis - Gastrointestinal Gastrointestinal: normoactive bowel sounds - Integumentary Integumentary: normal - Neurologic Cranial nerve examination: PERRL, EOMI, intact Speech examination: intact Detailed motor examination: grossly full strength in Detailed sensory examination: intact - Laboratory Findings CBC and BMP: 11/05/20 05:27 11/05/20 05:27 Abnormal Lab Findings: Abnormal Labs 11/03/20 11/03/20 11/03/20 19:39 19:39 19:39 WBC RBC Hgb 15.8 H Hct 45.9 H MCHC 35 H Plt Count 119 L Lymph % (Auto) [place] % (Auto) 12.2 H [place] # (Auto) 1.0 H Seg Neutrophils % Seg Neutrophils # PT INR BUN Creatinine Glucose 117 H POC Glucose Albumin 3.7 L Triglycerides HDL Cholesterol 11/04/20 11/04/20 11/04/20 07:28 15:48 22:02 WBC RBC Hgb Hct MCHC Plt Count Lymph % (Auto) [place] % (Auto) [place] # (Auto) Seg Neutrophils % Seg Neutrophils # PT INR BUN Creatinine Glucose POC Glucose 144 H 159 H 157 H Albumin Triglycerides HDL Cholesterol 11/05/20 11/05/20 11/05/20 05:27 05:27 05:27 WBC 13.8 H RBC 5.58 H Hgb 17.6 H Hct 51.1 H MCHC 35 H Plt Count Lymph % (Auto) 11.7 L [place] % (Auto) 8.4 H [place] # (Auto) 1.1 H Seg Neutrophils % 79.0 H Seg Neutrophils # 10.5 H PT 18.7 H INR 1.51 H BUN 23 H Creatinine 1.9 H D Glucose 174 H POC Glucose Albumin Triglycerides 159 H HDL Cholesterol 29 L 11/05/20 11/05/20 08:16 11:32 WBC RBC Hgb Hct MCHC Plt Count Lymph % (Auto) [place] % (Auto) [place] # (Auto) Seg Neutrophils % Seg Neutrophils # PT INR BUN Creatinine Glucose POC Glucose 185 H 187 H Albumin Triglycerides HDL Cholesterol
--- NOTE | 2020-11-05 17:10 | Discharge Summary ---
Providers - Providers Date of Admission: 11/04/20 00:00 Date of discharge: 11/05/20 Attending physician: RITCHIE COSBY 11/04/20 00:00 Consult to Dietitian/Nutrition [CONS] Routine Physician Instructions: Reason For Exam: Reason for Consult: Nutrition Recommendations Reason for Consult: Diet education Occupational Therapy Evaluate and Treat [CONS] Routine Comment: Reason For Exam: Neuro deficits Physical Therapy Evaluation and Treat [CONS] Routine Comment: Reason For Exam: Neuro deficits 11/04/20 00:06 Speech Therapy Evaluation and Treat [CONS] Routine Reason For Exam: swallow eval 11/04/20 03:29 Consult to Physician [CONS] Routine Comment: Consulting Provider: KENNA MCCLELLAND Physician Instructions: Reason For Exam: TIA Primary care physician: HUMAN RESOURCES OPERATIONS DIRECTOR Hospitalization Condition: Good Disposition: DC-01 TO HOME OR SELFCARE Exam - Constitutional Vitals: Temp Pulse Resp BP Pulse Ox 97.6 F 101 H 20 94/59 98 11/05/20 08:19 11/05/20 14:00 11/05/20 14:00 11/05/20 09:23 11/05/20 14:00 Plan Follow up with: PRIMARY CARE, [Primary Care Provider] - 7 Days
--- NOTE | 2020-11-05 17:11 | Progress Note ---
Assessment and Plan Assessment and Plan - Patient Problems (1) TIA (transient ischemic attack) Current Visit: Yes Status: Acute Plan to address problem: Patient commenced on daily aspirin and also placed on statin. We will schedule patient for carotid Doppler, echocardiogram and MRI of the brain. Neurology consult appreciated (2) Hypertensive urgency Current Visit: Yes Status: Acute Plan to address problem: Continue antihypertensives blood pressure controlled (3) Diabetes mellitus Current Visit: Yes Status: Acute Plan to address problem: Patient placed on sliding scale insulin. We will monitor Accu-Cheks. (4) Atrial fibrillation Current Visit: No Status: Acute Qualifiers: Atrial fibrillation type: paroxysmal Qualified Code(s): I48.0 - Paroxysmal atrial fibrillation Plan to address problem: Rate is currently controlled. We will continue routine home medications. (5) DVT prophylaxis Current Visit: No Status: Acute Plan to address problem: Patient currently on anticoagulation with Eliquis. (6) Full code status Current Visit: Yes Status: Acute Subjective Date of service: 11/05/20 Principal diagnosis: confusion resolved Interval history: 80-year-old white male with known history of CHF, hypertension, hyperlipidemia, diabetes mellitus, coronary artery disease with stent placement in the past, atrial fibrillation was accompanied to the emergency room today by her daughter after being encouraged to report here by his psychologist industrial organizational Dr. Ibrahim. Over the past few weeks patient has been having intermittent episodes of confusion and unsteady gait. He was recently at [facility] about a month ago where he had cardiac catheterization and had 2 stents placed and was subsequently started on Lopressor and Imdur. According to daughter patient's symptoms seem to have started after commencing on these medications. Patient denies any headache or dizziness, no diaphoresis, no fever or chills, no chest pain or shortness of breath, no nausea or vomiting, no abdominal pain, no hematuria or dysuria, no bright red blood per rectum. He denies any sick contacts and no recent travel, denies any contact with any one with COVID-19. Patient has been fully vaccinated against COVID-19. Work-up in the emergency room today including CT scan of the head reveals no acute abnormalities. Patient was evaluated by the tele-neurologist and recommendation is to have patient worked up for possible TIA. Objective - Constitutional Vitals: Vital Signs - 12hr 11/05/20 11/05/20 11/05/20 06:12 06:25 07:15 Temperature 98.2 F Pulse Rate 99 H Pulse Rate [ From Monitor] Respiratory 20 Rate Blood Pressure 104/58 O2 Sat by Pulse Oximetry 11/05/20 11/05/20 11/05/20 08:19 09:22 09:23 Temperature 97.6 F Pulse Rate 47 L 115 H 97 H Pulse Rate [ From Monitor] Respiratory 18 Rate Blood Pressure 75/52 94/59 94/59 O2 Sat by Pulse 94 Oximetry 11/05/20 14:00 Temperature Pulse Rate Pulse Rate [ 101 H From Monitor] Respiratory 20 Rate Blood Pressure O2 Sat by Pulse 98 Oximetry - Labs CBC & Chem 7: 11/05/20 05:27 11/06/20 17:07 Labs: Abnormal lab results 11/04/20 11/05/20 11/05/20 Range/Units 22:02 05:27 05:27 WBC 13.8 H (4.5-11.0) K/mm3 RBC 5.58 H (3.65-5.03) M/mm3 Hgb 17.6 H (11.8-15.2) gm/dl Hct 51.1 H (35.5-45.6) % MCHC 35 H (32-34) % Lymph % (Auto) 11.7 L (13.4-35.0) % [place] % (Auto) 8.4 H (0.0-7.3) % [place] # (Auto) 1.1 H (0.0-0.8) K/mm3 Seg Neutrophils % 79.0 H (40.0-70.0) % Seg Neutrophils # 10.5 H (1.8-7.7) K/mm3 PT 18.7 H (12.2-14.9) Sec. INR 1.51 H (0.87-1.13) BUN (9-20) mg/dL Creatinine (0.8-1.3) mg/dL Glucose (75-100) mg/dL POC Glucose 157 H (70-105) mg/dL Triglycerides (2-149) mg/dL HDL Cholesterol (40-59) mg/dL 11/05/20 11/05/20 11/05/20 Range/Units 05:27 08:16 11:32 WBC (4.5-11.0) K/mm3 RBC (3.65-5.03) M/mm3 Hgb (11.8-15.2) gm/dl Hct (35.5-45.6) % MCHC (32-34) % Lymph % (Auto) (13.4-35.0) % [place] % (Auto) (0.0-7.3) % [place] # (Auto) (0.0-0.8) K/mm3 Seg Neutrophils % (40.0-70.0) % Seg Neutrophils # (1.8-7.7) K/mm3 PT (12.2-14.9) Sec. INR (0.87-1.13) BUN 23 H (9-20) mg/dL Creatinine 1.9 H D (0.8-1.3) mg/dL Glucose 174 H (75-100) mg/dL POC Glucose 185 H 187 H (70-105) mg/dL Triglycerides 159 H (2-149) mg/dL HDL Cholesterol 29 L (40-59) mg/dL 11/05/20 Range/Units 16:24 WBC (4.5-11.0) K/mm3 RBC (3.65-5.03) M/mm3 Hgb (11.8-15.2) gm/dl Hct (35.5-45.6) % MCHC (32-34) % Lymph % (Auto) (13.4-35.0) % [place] % (Auto) (0.0-7.3) % [place] # (Auto) (0.0-0.8) K/mm3 Seg Neutrophils % (40.0-70.0) % Seg Neutrophils # (1.8-7.7) K/mm3 PT (12.2-14.9) Sec. INR (0.87-1.13) BUN (9-20) mg/dL Creatinine (0.8-1.3) mg/dL Glucose (75-100) mg/dL POC Glucose 191 H (70-105) mg/dL Triglycerides (2-149) mg/dL HDL Cholesterol (40-59) mg/dL HEART Score - HEART Score Troponin: Troponin T < 0.010 ng/mL (0.00-0.029) 11/03/20 19:39
[2020-11-05] MEDS: SODIUM CHLORIDE 0.9% 1000 ML 1,000 ML IV SCH (18:43)
[2020-11-05] MEDS: LATANOPROST 0.005% OPHTH SOLN 2.5 ML OU SCH (18:44)
[2020-11-05] MEDS: PRAVASTATIN 20 MG TAB PO SCH (21:32)
[2020-11-05] MEDS: COMBIGAN 0.2-0.5% OPHTH SOLN OU SCH (21:35)
[2020-11-06] MEDS: SODIUM CHLORIDE 0.9% 1000 ML 1,000 ML IV SCH ×2 (06:00→13:17)
[2020-11-06] MEDS: INSULIN REGULAR, HUMAN 100 UNITS/1 ML SUB-Q SCH ×3 (08:31→17:14)
[2020-11-06] MEDS: METOPROLOL TARTRATE 100 MG TAB PO SCH (10:09)
[2020-11-06] MEDS: APIXABAN 5 MG TAB PO SCH (10:09)
[2020-11-06] MEDS: ASPIRIN 325 MG TAB PO SCH (10:09)
[2020-11-06] MEDS: LISINOPRIL 10 MG TAB PO SCH (10:09)
[2020-11-06] MEDS: PANTOPRAZOLE 20 MG TAB PO SCH (10:10)
[2020-11-06] MEDS: POTASSIUM CHLORIDE ER 20 MEQ TAB PO SCH (10:10)
[2020-11-06] MEDS: OXYBUTYNIN 5 MG TAB PO SCH (10:11)
--- NOTE | 2020-11-06 11:05 | Electrocardiograph Report ---
[facility] Test Date: 2020-11-05 Test Time: 11:03:07 Pat Name: MAHENDRA SIMPSON Department: Room: A467 1 Gender: M [employer] Estimator: JOSEPH : 1940 Requested By: RITCHIE COSBY Order Number: [id number] Reading MD: Kylah Lewis Measurements Intervals [place] Rate: 101 P: [place]: QRS: -83 QRSD: 149 T: -41 QT: 361 QTc: 498 Interpretive Statements Atrial fibrillation Right bundle branch block Inferior infarct, age indeterminate Compared to ECG 11/03/2020 19:33:47 Atrial fibrillation has replaced sinus rhythm Electronically Signed On 11-06-2020 11:05:33 EDT by Kylah Lewis
[2020-11-06 15:49] VITALS: BP 150/85
[2020-11-06 18:04] LABS: Calcium 8.9 mg/dL (8.4-10.2)
--- NOTE | 2020-11-06 18:39 | Discharge Summary ---
Providers - Providers Date of Admission: 11/04/20 00:00 Date of discharge: 11/06/20 Attending physician: RITCHIE COSBY 11/04/20 00:00 Consult to Dietitian/Nutrition [CONS] Routine Physician Instructions: Reason For Exam: Reason for Consult: Nutrition Recommendations Reason for Consult: Diet education Occupational Therapy Evaluate and Treat [CONS] Routine Comment: Reason For Exam: Neuro deficits Physical Therapy Evaluation and Treat [CONS] Routine Comment: Reason For Exam: Neuro deficits 11/04/20 00:06 Speech Therapy Evaluation and Treat [CONS] Routine Reason For Exam: swallow eval 11/04/20 03:29 Consult to Physician [CONS] Routine Comment: Consulting Provider: KENNA MCCLELLAND Physician Instructions: Reason For Exam: TIA Primary care physician: BRAILLE TYPIST Hospitalization Condition: Good Pertinent studies: MRI Brain normal Hospital course: Subjective Date of service: Principal diagnosis: confusion resolved Interval history: 80-year-old white male with known history of CHF, hypertension, hyperlipidemia, diabetes mellitus, coronary artery disease with stent placement in the past, atrial fibrillation was accompanied to the emergency room today by her daughter after being encouraged to report here by his fitness worker Dr. Ibrahim. Over the past few weeks patient has been having intermittent episodes of confusion and unsteady gait. He was recently at [facility] about a month ago where he had cardiac catheterization and had 2 stents placed and was subsequently started on Lopressor and Imdur. According to daughter patient's symptoms seem to have started after commencing on these medications. Patient denies any headache or dizziness, no diaphoresis, no fever or chills, no chest pain or shortness of breath, no nausea or vomiting, no abdominal pain, no hematuria or dysuria, no bright red blood per rectum. He denies any sick contacts and no recent travel, denies any contact with any one with COVID-19. Patient has been fully vaccinated against COVID-19. Work-up in the emergency room today including CT scan of the head reveals no acute abnormalities. Patient was evaluated by the tele-neurologist and recommendation is to have patient worked up for possible TIA. Assessment and Plan - Patient Problems (1) TIA (transient ischemic attack) Current Visit: Yes Status: Acute Plan to address problem: Patient commenced on daily aspirin and also placed on statin. We will schedule patient for carotid Doppler, echocardiogram and MRI of the brai n. Neurology consult appreciated (2) Hypertensive urgency Current Visit: Yes Status: Acute Plan to address problem: Continue antihypertensives blood pressure controlled (3) Diabetes mellitus Current Visit: Yes Status: Acute Plan to address problem: Patient placed on sliding scale insulin. We will monitor Accu-Cheks. (4) Atrial fibrillation Current Visit: No Status: Acute Qualifiers: Atrial fibrillation type: paroxysmal Qualified Code(s): I48.0 - Paroxysmal atrial fibrillation Plan to address problem: Rate is currently controlled. We will continue routine home medications. (5) DVT prophylaxis Current Visit: No Status: Acute Plan to address problem: Patient currently on anticoagulation with Eliquis. (6) Full code status Current Visit: Yes Status: Acute Disposition: 01 HOME / SELF CARE / HOMELESS Final Discharge Diagnosis (Prints w/discharge instructions): TIA. Hypertensive urgency. T2DM Time spent for discharge: 32 minutes - Discharge Diagnoses (1) TIA (transient ischemic attack) Status: Acute (2) Hypertensive urgency Status: Acute (3) Atrial fibrillation Status: Acute Qualifiers: Atrial fibrillation type: paroxysmal Qualified Code(s): I48.0 - Paroxysmal atrial fibrillation (4) T2DM (type 2 diabetes mellitus) Status: Acute Core Measure Documentation - Palliative Care Palliative Care/ Comfort Measures: Not Applicable - Core Measures Any of the following diagnoses?: none Exam - Constitutional Vitals: Temp Pulse Resp BP Pulse Ox 97.4 F L 76 22 150/85 97 11/06/20 15:00 11/06/20 15:00 11/06/20 15:00 11/06/20 15:00 11/06/20 15:00 General appearance: Present: no acute distress, well-nourished - EENT Eyes: Present: PERRL ENT: hearing intact, clear oral mucosa - Neck Neck: Present: supple, normal ROM - Respiratory Respiratory effort: normal Respiratory: bilateral: CTA - Cardiovascular Heart Sounds: Present: S1 & S2. Absent: rub, click - Extremities Extremities: pulses symmetrical, No edema Peripheral Pulses: within normal limits - Abdominal General gastrointestinal: Present: soft, non-tender, non-distended, normal bowel sounds Male genitourinary: Present: normal - Integumentary Integumentary: Present: clear, warm, dry - Musculoskeletal Musculoskeletal: gait normal, strength equal bilaterally - Psychiatric Psychiatric: appropriate mood/affect, intact judgment & insight - Neurologic Neurologic: CNII-XII intact, moves all extremities Plan Activity: no restrictions Diet: low salt, diabetic Follow up with: PRIMARY CARE, [Primary Care Provider] - 7 Days Prescriptions: Meclizine [Antivert] 25 mg PO Q8H PRN #20 tablet PRN Reason: Vertigo Brimonidine/Timolol 0.2-0.5% [Combigan 0.2-0.5%] 1 drops OP QHS #1 bottle Oxybutynin [Ditropan] 5 mg PO QAM #30 Apixaban [Eliquis] 5 mg PO Q12HR #60 tablet Isosorbide Mononitrate [Isosorbide Mononitrate ER] 60 mg PO QHS #30 Potassium Chloride [K-Dur] 20 meq PO QDAY #30 Latanoprost 0.005% 1 drop OP QPM #1 bottle Metoprolol Tartrate [Lopressor] 100 mg PO BID #60 Pravastatin [Pravachol] 20 mg PO QHS #30 lisinopriL [Zestril TAB] 10 mg PO QDAY #30
== END 2020-11-06 17:26 | disposition home or self-care (01) | DRG 69 ==
LOC: ED 18:20 → 4A 11-04 → OBSVTOIN 11-04 → 4A 11-04 14:06
PROVIDERS: ADMIT Internal Medicine Geriatric Medicine; ATTEND Internal Medicine
DX: G45.9 Transient cerebral ischemic attack, unspecified (principal); I25.10 Atherosclerotic heart disease of native coronary artery without angina pectoris; I16.0 Hypertensive urgency; E11.8 Type 2 diabetes mellitus with unspecified complications; I48.0 Paroxysmal atrial fibrillation; I50.9 Heart failure, unspecified; G47.30 Sleep apnea, unspecified; R56.9 Unspecified convulsions; I11.0 Hypertensive heart disease with heart failure; Z95.5 Presence of coronary angioplasty implant and graft; I25.2 Old myocardial infarction; Z79.899 Other long term (current) drug therapy
CPT/HCPCS: 36415; 70450; 70551; 80048; 80061; 80076; 80307; 81001; 82962; 84484; 85025; 85610; 85670; 85730; 87641; 93005; 93306; 93880; 95819; G0378; A9270-GY; J0360; J1815; J1940; J2060; J3486; J7030